=== PATIENT | male | born 1950 | race African-American/Black ===

== ENCOUNTER 2020-02-02 00:04 | Inpatient (IN) | payer OTHER ==
[2020-02-02] VITALS (8 sets, daily range): BP systolic 110–141; BP diastolic 65–94
[~2020-02-02] VITALS: Ht 162.6 cm; Wt 68.0 kg
--- NOTE | 2020-02-02 00:14 | Emergency Room Report ---
History of Present Illness General Chief Complaint: Substance Abuse Source: Patient Present Illness HPI 69-year-old -[place] male with no stated prior medical history brought in by ambulance with altered mental status. According to EMS, patient [place] unresponsive. He was given Narcan 4 mg intranasal prior to arrival with good response. He subsequently became lethargic and required another Narcan 2 mg IM. He is able to cooperate with exam and questioning at this time, however history is limited secondary to patient's altered mental status. Patient admits to smoking marijuana and snorting cocaine. Denies IV drug use or use of heroin/fentanyl The patient's symptoms were gradual onset, severity was moderate, duration since unknown duration. Quality: No pain Past medical history: Denies Past surgical history: Denies Smoking: Denies Alcohol use: Denies Drug use: +++ Review of systems: CONST: No fevers or chills, No night sweats PULMONARY: No productive cough, No shortness of breath CARDIAC: No chest pain, No palpitations GI: No vomiting, No diarrhea , No melena_or_BRBPR : No dysuria, No hematuria, No discharge NEURO: No new_focal_weakness_or_numbness, No confusion, No vision changes 14 point Review of Systems is otherwise negative except per HPI Physical Exam: GENERAL: Awake_alert_ nontoxic, no acute distress Spo2 90% on RA -normal EYES: Extraocular muscles are intact. Conjunctivae clear. Lids without swelling ENT: External nose and ear normal_in_appearance. Oropharynx clear. Head_atr aumatic, Moist_oral_mucosa NECK: No JVD. No meningismus. No thyromegaly. Supple. Trachea midline RESP: Bradypneic. Symmetric rise. No stridor. Clear_to_auscultation_No_rales_No_wheezes Coarse breath sounds bilaterally CARDIAC: Tachycardic and regular rhytm. No_significant pedal edema. ABDOMEN: Soft. Nondistended. Nontender_No_rebound_or_guarding. MSK: Normal muscle tone, without rigidity. Extremities without asymmetric deformity or swelling. SKIN: Warm and dry. No visible cyanosis or pallor NEUROLOGIC: Alert, oriented x3. Motor_and_sensation_grossly_intact. No truncal ataxia. Gait_normal Psych: Normal mood and affect, normal judgment and insight - COORDINATION OF CARE Case was discussed with: Patient Any labs and imaging that were ordered were interpreted as part of the medical decision making: Medical Decision Making/Plan: Differential diagnosis includes psychosis, delusions, paranoid schizophrenia, drug abuse, drug intoxication, drug overdose, among others. The patient denies any suicide attempt, overdose, or ingestion. He endorses cocaine today. Denies opiates. Denies fentanyl or heroin. They exhibit no signs of any toxic syndrome or drug / alcohol withdrawal. Labs were ordered for evaluation, given unclear history. Troponin was found to be critically elevated at 0.1. BNP was normal limits Patient was continually hypoxic on room air, therefore required supplemental nasal cannula. Suspect coingestions. UDS shows positive cocaine EKG shows no obvious signs of TCA overdose. Sinus tachycardia. Normal axis. No extreme right heart strain CXR shows no enlarged mediastinum, fracture, hemo-/pneumothorax The patient denies any external blood loss and has no significant pallor or evidence of acute anemia as a cause of their symptoms. Hemoglobin is not severely low, and acute blood transfusion is not indicated. In addition, the patient has no loud murmur or evidence of significant obstructive heart disease, symptoms are not in the setting of exertion. The patient is neurologically intact, with normal cerebellar exam, without any evidence of central vertigo as a cause of their symptoms. They appear well hydrated without any evidence of severe dehydration or acute hypovolemia. However, given the patients risk factors, the patient would benefit from admission to observation for continuous cardiac monitoring, given the possibility of cardiac syncope. Patient will be admitted for NSTEMI I spoke with Dr. Moreno (Pito Baca), and reviewed the patients presentation, w orkup, results, and treatment. They will admit the patient for further care and evaluation, and assume care of the patient at this time. 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 Time is exclusive of separately billab le procedures. Time includes: direct patient care, continuous monitoring and multiple patient reassessment, coordination of patient care, review of patient's medical records, medical consultation, family consultation regarding treatment decisions and docu mentation of patient care. Medical Decision Making Diagnostic Impression: Primary Impression: NSTEMI (non-ST elevated myocardial infarction) Additional Impressions: Polysubstance abuse Cocaine abuse Apnea Hypoxia JOSUE (acute kidney injury) Substance abuse Hypokalemia EKG Diagnostic Results Troponin ordered: Yes When was troponin ordered?: Feb 02, 2020 EKG Time: 00:37 EP Interpretation: Sinus tachycardia, nonspecific ST changes, no STEMI Rate: tachycardiac ASA given to the pt in ED: Yes Rhythm Strip Diag. Results Rhythm Strip Time: 01:21 EP Interpretation: yes Rate: 99 Rhythm: NSR, no ectopy Chest X-Ray Diagnostic Results Chest X-Ray Diagnostic Results : EVANGELINA Scribe Text Chest X-Ray: Views: 1 view(s) Indication: Syncope Findings: Normal heart size. Mediastinum normal. No infiltrate. Impression: No enlarged mediastinum. No pneumothorax. The X-ray(s) were independently viewed and interpreted contemporaneously Electronically signed by Terri montaño DO CT/MRI/US Diagnostic Results CT/MRI/US Diagnostic Results : Impression EXAM: CT Head Without Intravenous Contrast COMPARISON: No relevant prior studies available. FINDINGS: Brain: Parenchymal volume loss. Nonspecific white matter hypoattenuation likely secondary to chronic microvascular ischemia. Cerebrovascular ASVD. No hemorrhage. Ventricles: Unremarkable. No ventriculomegaly. Bones/joints: Unremarkable. No acute fracture. Soft tissues: Unremarkable. Sinuses: Unremarkable as visualized. No acute sinusitis. Mastoid air cells: Unremarkable as visualized. No mastoid effusion. IMPRESSION: 1. No acute intracranial abnormality. 2. Mild chronic senescent findings above. Radiologist: Rancho Chang MD Reevaluation Time: 01:21 Last Vital Signs Date Time Temp Pulse Resp B/P (MAP) Pulse Ox O2 Delivery O2 Flow Rate FiO2 02/02/20 00:01 98.8 109 18 136/87 (103) 98 Room Air Status: improved Disposition: ADMITTED INPATIENT Admit Decision Time: 01:26 Condition: Stable Terri Dooley D.O. Feb 02, 2020 00:14
[2020-02-02] MEDS ORDERED: Naloxone 1mg/ml 2ml IVP ONE (00:15)
[2020-02-02 00:40] LABS: BASOPHILS % (AUTO) 0.9 % (0.0-2.0); EOSINOPHILS % (AUTO) 1.9 % (0.0-3.0); HEMATOCRIT 43.5 % (42.0-52.0); HEMOGLOBIN 13.6 G/DL (14.2-18.0); MEAN CORPUSCULAR VOLUME 102 FL (80-99); MONOCYTES % (AUTO) 6.8 % (1.0-10.0); NEUTROPHILS % (AUTO) 60.4 % (45.0-75.0); PLATELET COUNT 267 K/UL (150-450); RED BLOOD COUNT 4.27 M/UL (4.70-6.10); RED CELL DISTRIBUTION WIDTH 13.6 % (11.6-14.8); WHITE BLOOD COUNT 10.7 K/UL (4.8-10.8)
[2020-02-02 00:57] LABS: ANION GAP 10 mmol/L (5-15); BLOOD UREA NITROGEN 22 mg/dL (7-18); CALCIUM 8.2 MG/DL (8.5-10.1); CARBON DIOXIDE 26 MMOL/L (21-32); CHLORIDE 104 MMOL/L (98-107); CREATININE 1.4 MG/DL (0.55-1.30); POTASSIUM 3.3 MMOL/L (3.5-5.1); SODIUM 139 MMOL/L (136-145)
[2020-02-02 01:10] LABS: ALANINE AMINOTRANSFERASE 40 U/L (12-78); ALBUMIN 3.4 G/DL (3.4-5.0); ALBUMIN/GLOBULIN RATIO 0.7 (1.0-2.7); ALKALINE PHOSPHATASE 77 U/L (46-116); ASPARTATE AMINO TRANSFERASE 51 U/L (15-37); BILIRUBIN,TOTAL 0.2 MG/DL (0.2-1.0)
[2020-02-02 01:22] LABS: APPEARANCE,URINE CLEAR; BILIRUBIN, URINE NEGATIVE (NEGATIVE); COLOR,URINE PALE YELLOW; GLUCOSE, URINE (UA) NEGATIVE (NEGATIVE); KETONES,URINE NEGATIVE (NEGATIVE); LEUKOCYTE ESTERASE ,URINE NEGATIVE (NEGATIVE); NITRITE,URINE NEGATIVE (NEGATIVE); PH,URINE 6 (4.5-8.0); PROTEIN,URINE 2+ (NEGATIVE); UROBILINOGEN,URINE NORMAL MG/DL (0.0-1.0)
--- NOTE | 2020-02-02 01:56 | Diagnostic Imaging Report ---
EXAM: CT Head Without Intravenous Contrast CLINICAL HISTORY: AMS TECHNIQUE: Axial computed tomography images of the head/brain without intravenous contrast. CTDI is 53.40 mGy and DLP is 1179.10 mGy-cm. One or more of the following dose reduction techniques were used: automated exposure control, adjustment of the mA and/or kV according to patient size, use of iterative reconstruction technique. COMPARISON: No relevant prior studies available. FINDINGS: Brain: Parenchymal volume loss. Nonspecific white matter hypoattenuation likely secondary to chronic microvascular ischemia. Cerebrovascular ASVD. No hemorrhage. Ventricles: Unremarkable. No ventriculomegaly. Bones/joints: Unremarkable. No acute fracture. Soft tissues: Unremarkable. Sinuses: Unremarkable as visualized. No acute sinusitis. Mastoid air cells: Unremarkable as visualized. No mastoid effusion. IMPRESSION: 1. No acute intracranial abnormality. 2. Mild chronic senescent findings above.
[2020-02-02] MEDS ORDERED: Heparin 5000 units/ml inj IV ONE (04:30)
[2020-02-02] MEDS ORDERED: Heparin 5000 units/ml inj IV SCH (04:30)
[2020-02-02] MEDS ORDERED: Heparin 25,000u/D5W 500ml 500 ML IV SCH (04:30)
[2020-02-02] MEDS ORDERED: Heparin 5000 units/ml inj SUBQ SCH (09:00)
[2020-02-02] MEDS: Aspirin Baby 81mg NG SCH (09:15)
[2020-02-02] MEDS: Heparin 5000 units/ml inj SUBQ SCH ×2 (09:18→20:18)
--- NOTE | 2020-02-02 10:37 | History and Physical ---
History of Present Illness General Reason for Hospitalization: Substance Abuse Present Illness HPI Mr. Mcmahon is a 69M with PMH of cocaine use [place] Patient was given narcan 4mg by EMS with good response. He required another round of Narcan of 2mg. Patient admits to daily use of cocaine for years. Denies any hx of cardiopulomonary disease. No other drug use. Takes no home medications. He is currently resting in bed and feels weak with some chills. Denies any sob, chest pain, abdominal pain, n/v. Initiala troponin .[address] possible slight [address] elevation in anterior leads. PMH: cocaine abuse Fx: denies any family hisotry disease Soc: uses cocaine daily for years, smokes 5-6 cigg daily for years, denies alcohol use Allergies: Coded Allergies: No Known Allergies (Unverified , 02/02/20) COVID-19 Screening Contact w/high risk pt: No Experienced COVID-19 symptoms?: No Patient History Healthcare decision maker Resuscitation status Advanced Directive on File Review of Systems Constitutional: Reports: malaise, weakness; Denies: no symptoms, see HPI, chills, sweats, fever, other Eye: Denies: no symptoms, see HPI, eye pain, blurred vision, tearing, double vision, nose pain, nose congestion, acuity changes, discharge, other ENT: Denies: no symptoms, see HPI, ear pain, ear discharge, nose pain, nose congestion, throat pain, throat swelling, mouth pain, hearing loss, nasal discharge, other Respiratory: Denies: no symptoms, see HPI, cough, orthopnea, shortness of breath, stridor, wheezing, VALVERDE, sputum, other Cardiovascular: Denies: no symptoms, see HPI, chest pain, edema, palpitations, syncope, PND, other Gastrointestinal: Denies: no symptoms, see HPI, abdominal pain, constipation, diarrhea, nausea, vomiting, melena, hematemesis, other Genitourinary: Denies: no symptoms, see HPI, discharge, dysuria, frequency, hematuria, pain, retention, incontinence, urgency, vag bleed/dc, other Musculoskeletal: Denies: no symptoms, see HPI, back pain, gout, joint pain, joint swelling, muscle pain, muscle stiffness, other Skin: Denies: no symptoms, see HPI, rash, change in color, change in hair/nails, dryness, lesions, other Psychiatric: Denies: no symptoms, see HPI, prior hx, anxiety, depressed feelings, emotional problems, SI, HI, hallucinations, other Neurological: Denies: no symptoms, see HPI, headache, numbness, paresthesia, s eizure, tingling, tremors, focal weakness, syncope, dizziness, other Endocrine: Denies: no symptoms, see HPI, excessive sweating, flushing, intolerance to temperature, increased thirst, increased urine, unexplained weight loss, other Hematologic/Lymphatic: Denies: no symptoms, see HPI, anemia, blood clots, easy bleeding, easy bruising, swollen glands, diathesis, other Physical Exam General Appearance: alert, mild distress, alert oriented x3 HEENT: atraumatic, PERRL Neck: supple, normal inspection Respiratory/Chest: lungs clear, normal breath sounds, respiratory distress Cardiovascular/Chest: normal rate, regular rhythm, no JVD Abdomen: normal bowel sounds, non tender, soft Extremities: normal range of motion, non-tender Skin Exam: normal pigmentation, warm/dry 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, alert, oriented x 3 Musculoskeletal: normal muscle bulk Last 24 Hour Vital Signs Date Time Temp Pulse Resp B/P (MAP) Pulse Ox O2 Delivery O2 Flow Rate FiO2 02/02/20 08:00 97.2 89 17 139/89 (106) 92 02/02/20 08:00 91 02/02/20 05:21 87 02/02/20 05:19 97.1 98 18 141/94 (110) 96 02/02/20 04:45 98.8 100 18 128/76 100 Simple Mask 6.0 02/02/20 04:00 98.7 100 18 134/82 100 Simple Mask 6.0 02/02/20 02:30 98.8 106 18 141/83 98 Simple Mask 6.0 02/02/20 00:10 98.8 109 18 130/81 98 Simple Mask 6.0 02/02/20 00:10 109 18 Room Air 02/02/20 00:01 98.8 109 18 136/87 (103) 98 Room Air Intake and Output 02/01/20 02/02/20 19:00 07:00 Intake Total 1720 ml Output Total 300 ml Balance 1420 ml Intake Oral 20 ml IV Total 1700 ml Output Urine Total 300 ml # Voids 3 Laboratory Tests Test 02/02/20 00:21 02/02/20 00:23 02/02/20 00:55 02/02/20 01:01 White Blood Count 10.7 K/UL (4.8-10.8) Red Blood Count 4.27 M/UL (4.70-6.10) L Hemoglobin 13.6 G/DL (14.2-18.0) L Hematocrit 43.5 % (42.0-52.0) Mean Corpuscular Volume 102 FL (80-99) H Mean Corpuscular Hemoglobin 31.9 PG (27.0-31.0) H Mean Corpuscular Hemoglobin Concent 31.2 G/DL (32.0-36.0) L Red Cell Distribution Width 13.6 % (11.6-14.8) Platelet Count 267 K/UL (150-450) Mean Platelet Volume 7.1 FL (6.5-10.1) Neutrophils (%) (Auto) 60.4 % (45.0-75.0) Lymphocytes (%) (Auto) 30.0 % (20.0-45.0) Monocytes (%) (Auto) 6.8 % (1.0-10.0) Eosinophils (%) (Auto) 1.9 % (0.0-3.0) Basophils (%) (Auto) 0.9 % (0.0-2.0) Sodium Level 139 MMOL/L (136-145) Potassium Level 3.3 MMOL/L (3.5-5.1) L Chloride Level 104 MMOL/L (98-107) Carbon Dioxide Level 26 MMOL/L (21-32) Anion Gap 10 mmol/L (5-15) Blood Urea Nitrogen 22 mg/dL (7-18) H Creatinine 1.4 MG/DL (0.55-1.30) H Estimat Glomerular Filtration Rate 50.4 mL/min (>60) Glucose Level 165 MG/DL (74-106) H Calcium Level 8.2 MG/DL (8.5-10.1) L Total Bilirubin 0.2 MG/DL (0.2-1.0) Aspartate Amino Transf (AST/SGOT) 51 U/L (15-37) H Alanine Aminotransferase (ALT/SGPT) 40 U/L (12-78) Alkaline Phosphatase 77 U/L (46-116) Troponin I 0.100 ng/mL (0.000-0.056) Pro-B-Type Natriuretic Peptide 79 pg/mL (0-125) Total Protein 8.0 G/DL (6.4-8.2) Albumin 3.4 G/DL (3.4-5.0) Globulin 4.6 g/dL Albumin/Globulin Ratio 0.7 (1.0-2.7) L Thyroid Stimulating Hormone (TSH) 4.163 uiU/mL (0.358-3.740) Salicylates Level 1.5 ug/mL (2.8-20) L Acetaminophen Level < 2 MCG/ML (10-30) L Serum Alcohol 15 mg/dL POC Whole Blood Glucose 141 MG/DL (74-106) H Ammonia < 10 umol/L (11-32) L Urine Color Pale yellow Urine Appearance Clear Urine pH 6 (4.5-8.0) Urine Specific [place] 1.020 (1.005-1.035) Urine Protein 2+ (NEGATIVE) H Urine Glucose (UA) Negative (NEGATIVE) Urine Ketones Negative (NEGATIVE) Urine Blood 2+ (NEGATIVE) H Urine Nitrite Negative (NEGATIVE) Urine Bilirubin Negative (NEGATIVE) Urine Urobilinogen Normal MG/DL (0.0-1.0) Urine Leukocyte Esterase Negative (NEGATIVE) Urine RBC 2-4 /HPF (0 - 0) H Urine WBC 0 /HPF (0 - 0) Urine Squamous Epithelial Cells None /LPF (NONE/OCC) Urine Bacteria Few /HPF (NONE) Urine Opiates Screen Negative (NEGATIVE) Urine Barbiturates Screen Negative (NEGATIVE) Phencyclidine (PCP) Screen Negative (NEGATIVE) Urine Amphetamines Screen Negative (NEGATIVE) Urine Benzodiazepines Screen Negative (NEGATIVE) Urine Cocaine Screen Positive (NEGATIVE) H Urine Marijuana (THC) Screen Negative (NEGATIVE) Test 02/02/20 05:30 02/02/20 05:50 Urine Random Sodium 156 mmol/L (20-110) H Urine Creatinine 108.3 MG/DL (30.0-125.0) Troponin I 0.107 ng/mL (0.000-0.056) Free Thyroxine 1.05 NG/DL (0.76-1.46) Free Triiodothyronine 2.3 pg/mL (2.3-4.2) Microbiology Date/Time Source Procedure Growth Status 02/02/20 04:00 Rectum Received 02/02/20 00:21 Nasopharynx SARS-CoV-2 RdRp Gene Assay - Final Complete Height (Feet): 5 Height (Inches): 4.00 Weight (Pounds): 150 Medications Current Medications Medications (Trade) Dose Ordered Sig/Mikel Route PRN Reason Start Time Stop Time Status Last Admin Dose Admin Aspirin (ASA) 81 mg DAILY NG 02/02/20 09:00 03/18/20 08:59 02/02/20 09:15 Dextrose (Dextrose 50%) 25 ml Q30M PRN IV Hypoglycemia 02/02/20 04:00 05/02/20 03:59 Dextrose (Dextrose 50%) 50 ml Q30M PRN IV Hypoglycemia 02/02/20 04:00 05/02/20 03:59 Heparin Sodium (Porcine) (Heparin 5000 units/ml) 5,000 units EVERY 12 HOURS SUBQ 02/02/20 09:00 03/18/20 08:59 02/02/20 09:18 Sodium Chloride 1,000 ml @ 75 mls/hr [id number] IV 02/02/20 07:30 03/03/20 07:29 02/02/20 09:16 Assessment/Plan Assessment/Plan: Mr. Mcmahon is a 69M with PMH of cocaine abuse admitted after being found down. A: # Acute Toxic Encephalopathy 2/2 cocaine abuse # NSTEMI Type 1 vs 2 # Cocaine Abuse # JOSUE likely 2/2 Drug abuse, pre-renal # Macrocytic Anemia P: - hemodynamically stable - sat well on RA, monitor for increased O2 support - troponins .1 > .109, ekg: nsr with possible anterior ST changes - f/u ECHO - no BB at this time given cocaine abuse - UTOX +cocaine - CT negative for acute pathology - monitor renal function - f/u a1c, lipid panel - Narcan prn - monitor for withdrawals - ativan prn for agitation - Cardiology consult Dr. Sepulveda, recs appreciated CODE: Full GI: none DVT: heparin 5000U BID Diet: cardiac Dispo: pending nstemi eval Time spent on this encounter was 71 minutes which included 45 minutes of counseling and care coordination. I discussed with the nurse at bedside. Time of note may not reflect time patient was seen. Sumit Cai D.O Feb 02, 2020 10:37
[2020-02-02] MEDS ORDERED: Naloxone 2 MG in D5W 500ml 498 ML IV PRN (10:45)
[2020-02-02] MEDS ORDERED: LORazepam Inj 2mg/ml 1ml IV PRN (10:45)
[2020-02-02] MEDS ORDERED: Milk of Magnesia 30ml Ud ORAL PRN (11:45)
[2020-02-02] MEDS ORDERED: Albuterol/Ipratropium 3ml neb HHN PRN (11:45)
--- NOTE | 2020-02-02 16:22 | Cardiac Electrophysiology PN ---
Subjective Subjective [id number] Objective Last 24 Hour Vital Signs Date Time Temp Pulse Resp B/P (MAP) Pulse Ox O2 Delivery O2 Flow Rate FiO2 02/02/20 16:00 100.4 108 18 114/71 (85) 97 02/02/20 12:00 102.2 125 18 118/70 (86) 92 02/02/20 09:00 Nasal Cannula 3.0 02/02/20 08:00 97.2 89 17 139/89 (106) 92 02/02/20 08:00 91 02/02/20 05:21 87 02/02/20 05:19 97.1 98 18 141/94 (110) 96 02/02/20 04:45 98.8 100 18 128/76 100 Simple Mask 6.0 02/02/20 04:00 98.7 100 18 134/82 100 Simple Mask 6.0 02/02/20 02:30 98.8 106 18 141/83 98 Simple Mask 6.0 02/02/20 00:10 98.8 109 18 130/81 98 Simple Mask 6.0 02/02/20 00:10 109 18 Room Air 02/02/20 00:01 98.8 109 18 136/87 (103) 98 Room Air Intake and Output 02/01/20 02/02/20 19:00 07:00 Intake Total 1720 ml Output Total 300 ml Balance 1420 ml Intake Oral 20 ml IV Total 1700 ml Output Urine Total 300 ml # Voids 3 Laboratory Tests Test 02/02/20 00:21 02/02/20 00:23 02/02/20 00:55 02/02/20 01:01 White Blood Count 10.7 K/UL (4.8-10.8) Red Blood Count 4.27 M/UL (4.70-6.10) L Hemoglobin 13.6 G/DL (14.2-18.0) L Hematocrit 43.5 % (42.0-52.0) Mean Corpuscular Volume 102 FL (80-99) H Mean Corpuscular Hemoglobin 31.9 PG (27.0-31.0) H Mean Corpuscular Hemoglobin Concent 31.2 G/DL (32.0-36.0) L Red Cell Distribution Width 13.6 % (11.6-14.8) Platelet Count 267 K/UL (150-450) Mean Platelet Volume 7.1 FL (6.5-10.1) Neutrophils (%) (Auto) 60.4 % (45.0-75.0) Lymphocytes (%) (Auto) 30.0 % (20.0-45.0) Monocytes (%) (Auto) 6.8 % (1.0-10.0) Eosinophils (%) (Auto) 1.9 % (0.0-3.0) Basophils (%) (Auto) 0.9 % (0.0-2.0) Sodium Level 139 MMOL/L (136-145) Potassium Level 3.3 MMOL/L (3.5-5.1) L Chloride Level 104 MMOL/L (98-107) Carbon Dioxide Level 26 MMOL/L (21-32) Anion Gap 10 mmol/L (5-15) Blood Urea Nitrogen 22 mg/dL (7-18) H Creatinine 1.4 MG/DL (0.55-1.30) H Estimat Glomerular Filtration Rate 50.4 mL/min (>60) Glucose Level 165 MG/DL (74-106) H Calcium Level 8.2 MG/DL (8.5-10.1) L Total Bilirubin 0.2 MG/DL (0.2-1.0) Aspartate Amino Transf (AST/SGOT) 51 U/L (15-37) H Alanine Aminotransferase (ALT/SGPT) 40 U/L (12-78) Alkaline Phosphatase 77 U/L (46-116) Troponin I 0.100 ng/mL (0.000-0.056) Pro-B-Type Natriuretic Peptide 79 pg/mL (0-125) Total Protein 8.0 G/DL (6.4-8.2) Albumin 3.4 G/DL (3.4-5.0) Globulin 4.6 g/dL Albumin/Globulin Ratio 0.7 (1.0-2.7) L Thyroid Stimulating Hormone (TSH) 4.163 uiU/mL (0.358-3.740) Salicylates Level 1.5 ug/mL (2.8-20) L Acetaminophen Level < 2 MCG/ML (10-30) L Serum Alcohol 15 mg/dL POC Whole Blood Glucose 141 MG/DL (74-106) H Ammonia < 10 umol/L (11-32) L Urine Color Pale yellow Urine Appearance Clear Urine pH 6 (4.5-8.0) Urine Specific [place] 1.020 (1.005-1.035) Urine Protein 2+ (NEGATIVE) H Urine Glucose (UA) Negative (NEGATIVE) Urine Ketones Negative (NEGATIVE) Urine Blood 2+ (NEGATIVE) H Urine Nitrite Negative (NEGATIVE) Urine Bilirubin Negative (NEGATIVE) Urine Urobilinogen Normal MG/DL (0.0-1.0) Urine Leukocyte Esterase Negative (NEGATIVE) Urine RBC 2-4 /HPF (0 - 0) H Urine WBC 0 /HPF (0 - 0) Urine Squamous Epithelial Cells None /LPF (NONE/OCC) Urine Bacteria Few /HPF (NONE) Urine Opiates Screen Negative (NEGATIVE) Urine Barbiturates Screen Negative (NEGATIVE) Phencyclidine (PCP) Screen Negative (NEGATIVE) Urine Amphetamines Screen Negative (NEGATIVE) Urine Benzodiazepines Screen Negative (NEGATIVE) Urine Cocaine Screen Positive (NEGATIVE) H Urine Marijuana (THC) Screen Negative (NEGATIVE) Test 02/02/20 05:30 02/02/20 05:50 02/02/20 12:05 Urine Random Sodium 156 mmol/L (20-110) H Urine Creatinine 108.3 MG/DL (30.0-125.0) Troponin I 0.107 ng/mL (0.000-0.056) 0.120 ng/mL (0.000-0.056) Free Thyroxine 1.05 NG/DL (0.76-1.46) Free Triiodothyronine 2.3 pg/mL (2.3-4.2) Microbiology Date/Time Source Procedure Growth Status 02/02/20 04:00 Rectum Received 02/02/20 00:21 Nasopharynx SARS-CoV-2 RdRp Gene Assay - Final Complete Ned Sepulveda MD Feb 02, 2020 16:22
--- NOTE | 2020-02-02 17:29 | General Progress Note ---
Advance Care Planning Advance Care Planning Advance Care Planning [facility] An independent Hospitalist group, where every patient is our [facility] Internal Medicine Hospitalist Advanced Care Planning Note Please contact us at Date of Discussion: A cadd-rd-targ discussion with the patient regarding the patient's advanced care planning took place during this hospitalization on the above date. The discussion included the explanation and discussion of advance directives and associated forms/documents, as well as the patient's current code status. We also discussed at length the patient's medical conditions (both acute and chroni c), general prognosis, treatment options, and goals of care. The following summarizes the discussion: Advance Care Planning/Goals of Care: - Will attempt to fill out an AD and/or POLST with the patient prior to discharge, if not already completed - Continue current evaluation and management of any acute and chronic medical issues - Will continue to support the patient/family - Will continue to discuss both short- and long-term goals of care DPOA-HC/Surrogate Decision Maker: None currently appointed Code Status: Full Code Advanced Care Planning Forms/Documents Completed: Deferred until later encounter/visit A total of 25 minutes was spent on this discussion, including counseling, answering questions, and completing, if any, pertinent advanced care planning forms/documents. Time of note may not reflect time of encounter. Sumit Cai D.O Feb 02, 2020 17:29
[2020-02-02 18:41] LABS: BILIRUBIN, URINE NEGATIVE (NEGATIVE); GLUCOSE, URINE (UA) NEGATIVE (NEGATIVE); KETONES,URINE 3+ (NEGATIVE); LEUKOCYTE ESTERASE ,URINE 1+ (NEGATIVE); NITRITE,URINE NEGATIVE (NEGATIVE); PH,URINE 5 (4.5-8.0); PROTEIN,URINE 1+ (NEGATIVE); UROBILINOGEN,URINE NORMAL MG/DL (0.0-1.0)
[2020-02-02 19:11] LABS: APPEARANCE,URINE SLIGHTLY CLOUDY; COLOR,URINE YELLOW
--- NOTE | 2020-02-02 21:15 | Consultation ---
DATE OF CONSULTATION: 02/02/2020 CARDIOLOGY CONSULTATION CONSULTING PHYSICIAN: Ned Sepulveda M.D. REFERRING PHYSICIAN: Elda Moreno M.D. REASON FOR CONSULTATION: Non-ST elevation myocardial infarction. HISTORY OF PRESENT ILLNESS: The patient is a 69-year-old gentleman, who is homeless with history of cocaine use, [place] The patient was given Narcan by paramedics and with a good response. The patient may need another round of mg of Narcan. The patient admits to daily use of cocaine for years. The patient did not have any chest pain or shortness of breath. Initial troponin was elevated and EKG showed possible ST elevation in the anterior leads. Cardiology consultation was obtained for further evaluation and management. REVIEW OF SYSTEMS: Negative other than what is mentioned in the history of present illness. PAST MEDICAL HISTORY: As mentioned above. MEDICATIONS AT HOME: None. ALLERGIES: He has no known drug allergies. FAMILY HISTORY: Noncontributory. SOCIAL HISTORY: He uses cocaine daily for years and smokes cigarettes, but denies any alcohol. PHYSICAL EXAMINATION: VITAL SIGNS: Blood pressure is 114/71, pulse is 108, respirations 18, and temperature of 102.2. HEAD AND NECK: Showed no JVED. LUNGS: Clear. CARDIOVASCULAR: Shows regular S1 and S2 with no gallop. ABDOMEN: Soft. EXTREMITIES: No pitting edema. LABORATORY DATA: Labs show white count of 10.7 hematocrit 13.6, hematocrit 43.5, and platelet count of 267,000. Sodium 139, potassium 3.3, BUN of 22, creatinine 1.4, and glucose of 165. Troponin is 0.1 and 0.1. ASSESSMENT AND PLAN: 1. Troponin elevation. The levels are flat and all the same likely due to the patient's cocaine use as well as renal failure with creatinine of 1.4. I will avoid beta-marine. We will treat him with aspirin and statin. We will get an echocardiogram to evaluate for ejection fraction and wall motion abnormality. 2. Altered mental status due to cocaine use. 3. Toxic encephalopathy again due to cocaine use. 4. Renal failure with creatinine 1.4. 5. Microcytic anemia. It is of note that the patient's preliminary echocardiogram showed ejection fraction of 55%. Thank you very much for allowing me to participate in the care of this patient. Please do not hesitate to contact me for any questions regarding my evaluation. Ned Sepulveda M.D. DR: MEETA JOB#: [id number] CC:
[2020-02-03] VITALS: BP 118/78
[2020-02-03] MEDS ORDERED: traMADol 50mg tab ORAL PRN (01:00)
[2020-02-03 04:00] VITALS: BP 112/67
[2020-02-03 07:17] LABS: BASOPHILS % (AUTO) 0.4 % (0.0-2.0); EOSINOPHILS % (AUTO) 1.4 % (0.0-3.0); HEMATOCRIT 39.3 % (42.0-52.0); HEMOGLOBIN 12.8 G/DL (14.2-18.0); LYMPHOCYTES % (AUTO) 15.4 % (20.0-45.0); MEAN CORPUSCULAR VOLUME 100 FL (80-99); NEUTROPHILS % (AUTO) 74.8 % (45.0-75.0); PLATELET COUNT 226 K/UL (150-450); RED BLOOD COUNT 3.93 M/UL (4.70-6.10); RED CELL DISTRIBUTION WIDTH 13.2 % (11.6-14.8); WHITE BLOOD COUNT 16.5 K/UL (4.8-10.8)
[2020-02-03 07:38] LABS: BLOOD UREA NITROGEN 16 mg/dL (7-18); CALCIUM 8.2 MG/DL (8.5-10.1); CARBON DIOXIDE 27 MMOL/L (21-32); CHLORIDE 103 MMOL/L (98-107); CHOLESTEROL 140 MG/DL (< 200); HDL CHOLESTEROL 50 MG/DL (40-60); POTASSIUM 4.1 MMOL/L (3.5-5.1); SODIUM 135 MMOL/L (136-145); TRIGLYCERIDES 37 MG/DL (30-150)
[2020-02-03 07:40] LABS: ANION GAP 5 mmol/L (5-15)
[2020-02-03 08:00] VITALS: BP 127/80
[2020-02-03] MEDS: Aspirin Baby 81mg NG SCH (08:25)
[2020-02-03] MEDS: cefTRIAXone 1 GM in D5W 55 ML IVPB SCH (08:25)
[2020-02-03] MEDS: Heparin 5000 units/ml inj SUBQ SCH ×2 (08:27→20:23)
--- NOTE | 2020-02-03 09:07 | General Progress Note ---
Subjective Constitutional: Reports: fever; Denies: no symptoms, chills, diaphoresis, malaise, weakness, other HEENT: Denies: no symptoms, eye pain, blurred vision, tearing, double vision, ear pain, ear discharge, nose pain, nose congestion, throat pain, throat swelling, mouth pain, mouth swelling, other Cardiovascular: Denies: no symptoms, chest pain, edema, irregular heart rate, lightheadedness, palpitations, syncope, other Respiratory: Denies: no symptoms, cough, orthopnea, shortness of breath, SOB with excertion, SOB at rest, sputum, stridor, wheezing, other Gastrointestinal/Abdominal: Denies: no symptoms, abdomen distended, abdominal pain, black stools, tarry stools, blood in stool, constipated, diarrhea, difficulty swallowing, nausea, poor appetite, poor fluid intake, rectal bleeding, vomiting, other Genitourinary: Denies: no symptoms, burning, discharge, frequency, flank pain, hematuria, incontinence, pain, urgency, other Neurologic/Psychiatric: Denies: no symptoms, anxiety, depressed, emotional problems, headache, numbness, paresthesia, pre-existing deficit, seizure, ti ngling, tremors, weakness, other Endocrine: Denies: no symptoms, excessive sweating, flushing, intolerance to cold, intolerance to heat, increased hunger, increased thirst, increased urine, unexplained weight gain, unexplained weight loss, other Hematologic/Lymphatic: Denies: no symptoms, anemia, easy bleeding, easy bruising, other Allergies: Coded Allergies: No Known Allergies (Unverified , 02/02/20) Subjective No acute events overnight. Patient feels much better this morning. However noted to have 100.4 fever yesterday afternoon and elevated white count this morning. Denies any dysuria, fever, chills at the moment. Still has a cough, still waiting on chest x-ray that was over ordered 48 hours ago. Objective Last 24 Hour Vital Signs Date Time Temp Pulse Resp B/P (MAP) Pulse Ox O2 Delivery O2 Flow Rate FiO2 02/03/20 08:00 96.8 101 19 127/80 (96) 98 02/03/20 04:00 94 02/03/20 04:00 99.5 93 20 112/67 (82) 95 02/03/20 02:09 99.5 02/03/20 00:00 93 11/20/20 00:00 99.5 93 20 118/78 (91) 97 02/02/20 21:00 Nasal Cannula 3.0 02/02/20 20:00 98.1 93 110/65 (80) 95 02/02/20 20:00 96 02/02/20 16:00 97 02/02/20 16:00 100.4 108 18 114/71 (85) 97 02/02/20 13:31 99.4 02/02/20 12:00 102.2 125 18 118/70 (86) 92 02/02/20 12:00 126 Intake and Output 02/02/20 02/03/20 19:00 07:00 Intake Total 120 ml Output Total 350 ml Balance -230 ml Intake Oral 120 ml Output Urine Total 350 ml # Voids 2 Laboratory Tests 02/02/20 12:05: Troponin I 0.120H 02/02/20 17:30: Urine Color Yellow, Urine Appearance Slightly cloudy, Urine pH 5, Urine Specific [place] 1.015, Urine Protein 1+H, Urine Glucose (UA) Negative, Urine Ketones 3+H , Urine Blood 3+H, Urine Nitrite Negative, Urine Bilirubin Negative, Urine Urobilinogen Normal, Urine Leukocyte Esterase 1+H, Urine RBC 5-10H, Urine WBC 15-20H, Urine Squamous Epithelial Cells None, Urine Transitional Epithelial Cells , Urine Bacteria Few 02/02/20 18:00: Troponin I 0.118H 02/03/20 00:30: Troponin I 0.099H 02/03/20 06:05: White Blood Count 16.5#H, Red Blood Count 3.93L, Hemoglobin 12.8L, Hematocrit 39.3L, Mean Corpuscular Volume 100H, Mean Corpuscular Hemoglobin 32.4H, Mean Corpuscular Hemoglobin Concent 32.4, Red Cell Distribution Width 13.2, Platelet Count 226, Mean Platelet Volume 6.8, Neutrophils (%) (Auto) 74.8, Lymphocytes (%) (Auto) 15.4L, Monocytes (%) (Auto) 8.0, Eosinophils (%) (Auto) 1.4, Basophils (%) (Auto) 0.4, Sodium Level 135L, Potassium Level 4.1, Chloride Level 103, Carbon Dioxide Level 27, Anion Gap 5, Blood Urea Nitrogen 16, Creatinine 1.0, Estimat Glomerular Filtration Rate > 60, Glucose Level 77, Hemoglobin A1c 6.5H, Calcium Level 8.2L, Magnesium Level 1.9, Troponin I 0.082H, Pro-B-Type Natriuretic Peptide 427H, Triglycerides Level 37, Cholesterol Level 140, LDL Cho lesterol 72, HDL Cholesterol 50, Cholesterol/HDL Ratio 2.8L, Vitamin B12 Level 404, Folate 6.3L Height (Feet): 5 Height (Inches): 4.00 Weight (Pounds): 150 General Appearance: no apparent distress, alert, alert oriented x3 EENT: PERRL/EOMI Neck: non-tender, normal inspection Cardiovascular: normal rate, regular rhythm, no JVD Respiratory/Chest: lungs clear, normal breath sounds Abdomen: normal bowel sounds, non tender, soft Extremities: normal range of motion, non-tender Edema: no edema noted Arm (L), no edema noted Arm (R), no edema noted Leg (L), no edema noted Leg (R), no edema noted Pedal (L), no edema noted Pedal (R), no edema noted Generalized Neurologic: relocation counselor II-XII grossly normal, alert, oriented x 3 Skin: normal pigmentation, warm/dry Assessment/Plan Assessment/Plan: Mr. Mcmahon is a 69M with PMH of cocaine abuse admitted after being found down. A: # Acute Toxic Encephalopathy 2/2 cocaine abuseresolved # NSTEMI type 2 2/2 from cocaine abuse #Sepsis (Leukocytosis + fever) plus UTI source #UTI # Cocaine Abuse # JOSUE likely 2/2 Drug abuse, pre-renal # Macrocytic Anemia #Newly diagnosed type 2 diabetes mellitus P: - hemodynamically stable - sat well on RA, monitor for increased O2 support -Troponins downtrending, likely demand ischemia per cardiology -Echo showing preserved EF of 55% no regional wall motion abnormalities no valvular function abnormalities RSVP of 10 - no BB at this time given cocaine abuse - UTOX +cocaine -STILL waiting on chest x-ray, patient with persistent cough UA positive for UTI, will start empirically with Rocephin Monitor leukocytosis Follow-up blood cultures, urine cultures, MRSA screen - monitor renal function - A1c: 6.5, will give Metformin on discharge - Narcan prn - monitor for withdrawals - ativan prn for agitation - Cardiology consult Dr. Sepulveda, recs appreciated CODE: Full GI: none DVT: heparin 5000U BID Diet: cardiac Dispo: Pending infectious work-up, possible discharge in 1 to 2 days Time spent on this encounter was 45 minutes which included 24 minutes of counseling and care coordination. I discussed with the nurse at bedside. Time of note may not reflect time patient was seen. Sumit Cai D.O Feb 03, 2020 09:07
--- NOTE | 2020-02-03 11:43 | Cardiac Electrophysiology PN ---
Assessment/Plan Assessment/Plan 1. Troponin elevation. The levels are flat and low level due cocaine use as well as renal failure I will avoid beta-marine. We will treat him with aspirin and statin. Echocardiogram EF 55% 2. Altered mental status due to cocaine use. 3. Toxic encephalopathy again due to cocaine use. 4. Renal failure with creatinine 1.4. 5. Microcytic anemia. Subjective Subjective Alert in SR no CP. Objective Last 24 Hour Vital Signs Date Time Temp Pulse Resp B/P (MAP) Pulse Ox O2 Delivery O2 Flow Rate FiO2 02/03/20 09:00 Nasal Cannula 3.0 02/03/20 08:00 102 02/03/20 08:00 96.8 101 19 127/80 (96) 98 02/03/20 04:00 94 02/03/20 04:00 99.5 93 20 112/67 (82) 95 02/03/20 02:09 99.5 02/03/20 00:00 93 02/03/20 00:00 99.5 93 20 118/78 (91) 97 02/02/20 21:00 Nasal Cannula 3.0 02/02/20 20:00 98.1 93 20 110/65 (80) 95 02/02/20 20:00 96 02/02/20 16:00 97 02/02/20 16:00 100.4 108 18 114/71 (85) 97 02/02/20 13:31 99.4 02/02/20 12:00 102.2 125 18 118/70 (86) 92 02/02/20 12:00 126 Intake and Output 02/02/20 02/03/20 19:00 07:00 Intake Total 120 ml Output Total 350 ml Balance -230 ml Intake Oral 120 ml Output Urine Total 350 ml # Voids 2 Laboratory Tests Test 02/02/20 12:05 02/02/20 17:30 02/02/20 18:00 02/03/20 00:30 Troponin I 0.120 ng/mL (0.000-0.056) 0.118 ng/mL (0.000-0.056) 0.099 ng/mL (0.000-0.056) Urine Color Yellow Urine Appearance Slightly cloudy Urine pH 5 (4.5-8.0) Urine Specific [place] 1.015 (1.005-1.035) Urine Protein 1+ (NEGATIVE) H Urine Glucose (UA) Negative (NEGATIVE) Urine Ketones 3+ (NEGATIVE) H Urine Blood 3+ (NEGATIVE) H Urine Nitrite Negative (NEGATIVE) Urine Bilirubin Negative (NEGATIVE) Urine Urobilinogen Normal MG/DL (0.0-1.0) Urine Leukocyte Esterase 1+ (NEGATIVE) H Urine RBC 5-10 /HPF (0 - 0) H Urine WBC 15-20 /HPF (0 - 0) H Urine Squamous Epithelial Cells None /LPF (NONE/OCC) Urine Transitional Epithelial Cells /LPF (NONE) Urine Bacteria Few /HPF (NONE) Test 02/03/20 06:05 White Blood Count 16.5 K/UL (4.8-10.8) #H Red Blood Count 3.93 M/UL (4.70-6.10) L Hemoglobin 12.8 G/DL (14.2-18.0) L Hematocrit 39.3 % (42.0-52.0) L Mean Corpuscular Volume 100 FL (80-99) H Mean Corpuscular Hemoglobin 32.4 PG (27.0-31.0) H Mean Corpuscular Hemoglobin Concent 32.4 G/DL (32.0-36.0) Red Cell Distribution Width 13.2 % (11.6-14.8) Platelet Count 226 K/UL (150-450) Mean Platelet Volume 6.8 FL (6.5-10.1) Neutrophils (%) (Auto) 74.8 % (45.0-75.0) Lymphocytes (%) (Auto) 15.4 % (20.0-45.0) L Monocytes (%) (Auto) 8.0 % (1.0-10.0) Eosinophils (%) (Auto) 1.4 % (0.0-3.0) Basophils (%) (Auto) 0.4 % (0.0-2.0) Sodium Level 135 MMOL/L (136-145) L Potassium Level 4.1 MMOL/L (3.5-5.1) Chloride Level 103 MMOL/L (98-107) Carbon Dioxide Level 27 MMOL/L (21-32) Anion Gap 5 mmol/L (5-15) Blood Urea Nitrogen 16 mg/dL (7-18) Creatinine 1.0 MG/DL (0.55-1.30) Estimat Glomerular Filtration Rate > 60 mL/min (>60) Glucose Level 77 MG/DL (74-106) Hemoglobin A1c 6.5 % (4.3-6.0) H Calcium Level 8.2 MG/DL (8.5-10.1) L Magnesium Level 1.9 MG/DL (1.8-2.4) Troponin I 0.082 ng/mL (0.000-0.056) Pro-B-Type Natriuretic Peptide 427 pg/mL (0-125) H Triglycerides Level 37 MG/DL (30-150) Cholesterol Level 140 MG/DL (< 200) LDL Cholesterol 72 mg/dL (<100) HDL Cholesterol 50 MG/DL (40-60) Cholesterol/HDL Ratio 2.8 (3.3-4.4) L Vitamin B12 Level 404 PG/ML (193-986) Folate 6.3 NG/ML (8.6-58.9) L Microbiology Date/Time Source Procedure Growth Status 02/02/20 17:30 Urine,Clean Catch Urine Culture - Preliminary NO GROWTH Resulted 02/02/20 04:00 Rectum Received 02/02/20 00:21 Nasopharynx SARS-CoV-2 RdRp Gene Assay - Final Complete Objective HEAD AND NECK: No JVD. LUNGS: Clear. CARDIOVASCULAR: Regular S1 and S2 with no gallop. ABDOMEN: Soft. EXTREMITIES: No pitting edema. Ned Sepulveda MD Feb 03, 2020 11:43
[2020-02-03 11:53] VITALS: BP 128/79
--- NOTE | 2020-02-03 15:09 | Diagnostic Imaging Report ---
Indication: Shortness of breath Technique: Portable frontal view of the chest Comparison: 02/02/2020, 1:19 Findings: There is worsening aeration with increasing patchy opacities at the right base. Mild streaky opacities at the left base are unchanged. This even pleural effusion. No pneumothorax. No acute osseous abnormality. IMPRESSION: Worsening aeration with increasing right basilar opacities. Findings may related to increased atelectasis and/or pneumonia.
[2020-02-03 16:00] VITALS: BP 132/81
--- NOTE | 2020-02-03 16:09 | Cardiology Report ---
APPROVED REPORT EKG Measurement Heart [id number] [id number] <Conclusion> Normal sinus rhythm Anterior infarct, age undetermined Abnormal ECG
--- NOTE | 2020-02-03 16:25 | Cardiology Report ---
APPROVED REPORT EKG Measurement Heart [id number] [id number] <Conclusion> Sinus tachycardia Anterior infarct, age undetermined Abnormal ECG
--- NOTE | 2020-02-03 16:27 | Cardiology Report ---
APPROVED REPORT EKG Measurement Heart [id number] [id number] <Conclusion> Sinus tachycardia Cannot rule out Anterior infarct, age undetermined Abnormal ECG
--- NOTE | 2020-02-03 16:29 | Cardiology Report ---
APPROVED REPORT EKG Measurement Heart [id number] 180P53 [id number] <Conclusion> Normal sinus rhythm with sinus arrhythmia Possible Anterior infarct, age undetermined Abnormal ECG
--- NOTE | 2020-02-03 16:33 | Cardiology Report ---
APPROVED REPORT EKG Measurement Heart [id number] 186P70 [id number] <Conclusion> Sinus tachycardia Nonspecific T wave abnormality Abnormal ECG
[2020-02-03] MEDS ORDERED: Azithromycin 500 MG in D5W 275 ML IV ONE (17:00)
[2020-02-03 20:00] VITALS: BP 130/80
--- NOTE | 2020-02-03 20:58 | Neurology Progress Note ---
Interim History Interim History Interim History 69M with PMH of cocaine use [place] Patient was given narcan 4mg by EMS with good response. He required another round of Narcan of 2mg. Patient admits to daily use of cocaine for years. Denies any hx of cardiopulomonary disease. No other drug use. Takes no home medications. He is currently resting in bed and feels weak with some chills. Denies any sob, chest pain, abdominal pain, n/v. Initiala troponin .[address] possible slight ST elevation in anterior leads. Remains somnolent, confused, oriented to person PMH: cocaine abuse Fx: denies any family hisotry disease Soc: uses cocaine daily for years, smokes 5-6 cigg daily for years, denies alcohol use Objective Physical Exam Last Vital Signs Date Time Temp Pulse Resp B/P (MAP) Pulse Ox O2 Delivery O2 Flow Rate FiO2 02/03/20 16:02 89 20 95 Nasal Cannula 3.0 32 02/03/20 16:00 96.6 132/81 (98) Laboratory Tests Test 02/03/20 00:30 02/03/20 06:05 02/03/20 12:00 02/03/20 18:10 Troponin I 0.099 ng/mL (0.000-0.056) 0.082 ng/mL (0.000-0.056) 0.079 ng/mL (0.000-0.056) 0.069 ng/mL (0.000-0.056) White Blood Count 16.5 K/UL (4.8-10.8) #H Red Blood Count 3.93 M/UL (4.70-6.10) L Hemoglobin 12.8 G/DL (14.2-18.0) L Hematocrit 39.3 % (42.0-52.0) L Mean Corpuscular Volume 100 FL (80-99) H Mean Corpuscular Hemoglobin 32.4 PG (27.0-31.0) H Mean Corpuscular Hemoglobin Concent 32.4 G/DL (32.0-36.0) Red Cell Distribution Width 13.2 % (11.6-14.8) Platelet Count 226 K/UL (150-450) Mean Platelet Volume 6.8 FL (6.5-10.1) Neutrophils (%) (Auto) 74.8 % (45.0-75.0) Lymphocytes (%) (Auto) 15.4 % (20.0-45.0) L Monocytes (%) (Auto) 8.0 % (1.0-10.0) Eosinophils (%) (Auto) 1.4 % (0.0-3.0) Basophils (%) (Auto) 0.4 % (0.0-2.0) Sodium Level 135 MMOL/L (136-145) L Potassium Level 4.1 MMOL/L (3.5-5.1) Chloride Level 103 MMOL/L (98-107) Carbon Dioxide Level 27 MMOL/L (21-32) Anion Gap 5 mmol/L (5-15) Blood Urea Nitrogen 16 mg/dL (7-18) Creatinine 1.0 MG/DL (0.55-1.30) Estimat Glomerular Filtration Rate > 60 mL/min (>60) Glucose Level 77 MG/DL (74-106) Hemoglobin A1c 6.5 % (4.3-6.0) H Calcium Level 8.2 MG/DL (8.5-10.1) L Magnesium Level 1.9 MG/DL (1.8-2.4) Pro-B-Type Natriuretic Peptide 427 pg/mL (0-125) H Triglycerides Level 37 MG/DL (30-150) Cholesterol Level 140 MG/DL (< 200) LDL Cholesterol 72 mg/dL (<100) HDL Cholesterol 50 MG/DL (40-60) Cholesterol/HDL Ratio 2.8 (3.3-4.4) L Vitamin B12 Level 404 PG/ML (193-986) Folate 6.3 NG/ML (8.6-58.9) L Head: normocophalic Neck: no rigidity EENT: benign Neurologic Exam Objective non focal withdraws to pain Impression/Recommendations Problems: (1) Hypokalemia (2) Substance abuse (3) Cocaine abuse (4) Apnea (5) Hypoxia (6) Polysubstance abuse (7) NSTEMI (non-ST elevated myocardial infarction) (8) JOSUE (acute kidney injury) Diagnostic Impression acute encephalopathy, likely metabolic ro vascular, ddx seizure? tele cont atb FU cultures mri brain eeg Jose Luis Paulino MD Feb 03, 2020:57
[2020-02-04] VITALS: BP 141/91
--- NOTE | 2020-02-04 03:01 | Diagnostic Imaging Report ---
EXAM: XR Chest, 1 View CLINICAL HISTORY: COUGH TECHNIQUE: Frontal view of the chest. COMPARISON: No relevant prior studies available. FINDINGS: Lungs: Bilateral increased interstitial opacities in the lungs. There is some increased bibasilar opacification. Pleural space: Unremarkable. No pneumothorax. Heart: No cardiomegaly. Mediastinum: Unremarkable. Bones/joints: Old left-sided rib fractures. IMPRESSION: Bilateral interstitial and airspace disease.
[2020-02-04 04:00] VITALS: BP 136/85
[2020-02-04 06:47] LABS: BASOPHILS % (AUTO) 0.7 % (0.0-2.0); EOSINOPHILS % (AUTO) 2.8 % (0.0-3.0); HEMATOCRIT 41.1 % (42.0-52.0); HEMOGLOBIN 13.1 G/DL (14.2-18.0); LYMPHOCYTES % (AUTO) 16.6 % (20.0-45.0); MEAN CORPUSCULAR VOLUME 100 FL (80-99); MONOCYTES % (AUTO) 7.9 % (1.0-10.0); NEUTROPHILS % (AUTO) 71.9 % (45.0-75.0); PLATELET COUNT 232 K/UL (150-450); RED BLOOD COUNT 4.12 M/UL (4.70-6.10); RED CELL DISTRIBUTION WIDTH 13.4 % (11.6-14.8); WHITE BLOOD COUNT 10.5 K/UL (4.8-10.8)
[2020-02-04 07:10] LABS: ANION GAP 5 mmol/L (5-15); BLOOD UREA NITROGEN 12 mg/dL (7-18); CALCIUM 7.9 MG/DL (8.5-10.1); CARBON DIOXIDE 28 MMOL/L (21-32); CHLORIDE 105 MMOL/L (98-107); CREATININE 0.7 MG/DL (0.55-1.30); POTASSIUM 3.9 MMOL/L (3.5-5.1); SODIUM 137 MMOL/L (136-145)
[2020-02-04 08:00] VITALS: BP 129/81
[2020-02-04] MEDS: Aspirin Baby 81mg NG SCH (08:17)
[2020-02-04] MEDS: cefTRIAXone 1 GM in D5W 55 ML IVPB SCH (08:17)
[2020-02-04] MEDS: Heparin 5000 units/ml inj SUBQ SCH ×2 (08:18→22:52)
--- NOTE | 2020-02-04 09:09 | General Progress Note ---
Subjective Constitutional: Reports: weakness; Denies: no symptoms, chills, diaphoresis, fever, malaise, other HEENT: Denies: no symptoms, eye pain, blurred vision, tearing, double vision, ear pain, ear discharge, nose pain, nose congestion, throat pain, throat swelling, mouth pain, mouth swelling, other Cardiovascular: Denies: no symptoms, chest pain, edema, irregular heart rate, lightheadedness, palpitations, syncope, other Respiratory: Reports: cough, sputum; Denies: no symptoms, orthopnea, shortness of breath, SOB with excertion, SOB at rest, stridor, wheezing, other Gastrointestinal/Abdominal: Denies: no symptoms, abdomen distended, abdominal pain, black stools, tarry stools, blood in stool, constipated, diarrhea, difficulty swallowing, nausea, poor appetite, poor fluid intake, rectal bleeding, vomiting, other Genitourinary: Denies: no symptoms, burning, discharge, frequency, flank pain, hematuria, incontinence, pain, urgency, other Neurologic/Psychiatric: Denies: no symptoms, anxiety, depressed, emotional problems, headache, numbness, paresthesia, pre-existing deficit, seizure, tingling, tremors, weakness, other Endocrine: Denies: no symptoms, excessive sweating, flushing, intolerance to cold, intolerance to heat, increased hunger, increased thirst, increased urine, unexplained weight gain, unexplained weight loss, other Hematologic/Lymphatic: Denies: no symptoms, anemia, easy bleeding, easy bruising, other Allergies: Coded Allergies: No Known Allergies (Unverified , 02/02/20) Subjective No acute events overnight. Patient with persistent cough and weakness. Denies any fevers or chills. No chest pain, shortness of breath. Objective Last 24 Hour Vital Signs Date Time Temp Pulse Resp B/P (MAP) Pulse Ox O2 Delivery O2 Flow Rate FiO2 02/04/20 08:00 97.9 92 20 129/81 (97) 100 02/04/20 04:00 83 02/04/20 04:00 97.6 92 17 136/85 (102) 95 02/04/20 00:00 102 02/04/20 00:00 97.9 90 16 141/91 (108) 95 02/03/20 21:00 Nasal Cannula 3.0 02/03/20 20:00 92 02/03/20 20:00 97.7 96 18 130/80 (97) 94 02/03/20 19:00 96 Nasal Cannula 3.0 32 02/03/20 16:02 89 20 95 Nasal Cannula 3.0 32 02/03/20 16:02 95 Nasal Cannula 3.0 32 02/03/20 16:00 91 02/03/20 16:00 96.6 87 20 132/81 (98) 97 02/03/20 12:00 99 02/03/20 11:53 98.7 86 20 128/79 (95) 96 Intake and Output 02/03/20 02/04/20 19:00 07:00 Intake Total 360 ml Output Total 350 ml Balance 10 ml Intake Oral 360 ml Output Urine Total 350 ml # Voids 2 4 Laboratory Tests 02/03/20 12:00: Troponin I 0.079H 02/03/20 18:10: Troponin I 0.069H 02/04/20 00:10: Troponin I 0.076H 02/04/20 05:45: Troponin I 0.068H, White Blood Count 10.5, Red Blood Count 4.12L, Hemoglobin 13.1L, Hematocrit 41.1L, Mean Corpuscular Volume 100H, Mean Corpuscular Hemoglobin 31.7H, Mean Corpuscular Hemoglobin Concent 31.9L, Red Cell Distribution Width 13.4, Platelet Count 232, Mean Platelet Volume 6.6, Neutrophils (%) (Auto) 71.9, Lymphocytes (%) (Auto) 16.6L, Monocytes (%) (Auto) 7.9, Eosinophils (%) (Auto) 2.8, Basophils (%) (Auto) 0.7, Sodium Level 137, Pot assium Level 3.9, Chloride Level 105, Carbon Dioxide Level 28, Anion Gap 5, Blood Urea Nitrogen 12, Creatinine 0.7, Estimat Glomerular Filtration Rate > 60, Glucose Level 85, Calcium Level 7.9L, Magnesium Level 1.9 Height (Feet): 5 Height (Inches): 4.00 Weight (Pounds): 150 General Appearance: no apparent distress, alert, alert oriented x3 EENT: PERRL/EOMI Neck: normal alignment, supple Cardiovascular: normal rate, regular rhythm, no JVD Respiratory/Chest: no accessory muscle use, crackles/rales Abdomen: normal bowel sounds, non tender, soft Extremities: normal range of motion, non-tender Edema: no edema noted Arm (L), no edema noted Arm (R), no edema noted Leg (L), no edema noted Leg (R), no edema noted Pedal (L), no edema noted Pedal (R), no edema noted Generalized Neurologic: green ware caster II-XII grossly normal, alert, oriented x 3 Skin: normal pigmentation, warm/dry Assessment/Plan Assessment/Plan: Mr. Mcmahon is a 69M with PMH of cocaine abuse admitted after being found down. A: # Acute Toxic Encephalopathy 2/2 cocaine abuseresolved # NSTEMI type 2 2/2 from cocaine abuse #Community-acquired pneumonia #Sepsis (Leukocytosis + fever) plus UTI source and pneumonia #UTI # Cocaine Abuse # JOSUE likely 2/2 Drug abuse, pre-renalresolved # Macrocytic Anemia #Newly diagnosed type 2 diabetes mellitus P: - hemodynamically stable - sat well on 3 L, monitor for increased O2 support -Echo showing preserved EF of 55% no regional wall motion abnormalities no valvular function abnormalities RSVP of 10 - no BB at this time given cocaine abuse Chest x-ray showing right infiltrates Continue Rocephin and azithromycin for pneumonia Monitor leukocytosis which improved today Blood cultures negative for 24 hours, MRSA screen negative - monitor renal function Follow-up MRI per neurology - A1c: 6.5, will give Metformin on discharge - Narcan prn - monitor for withdrawals - ativan prn for agitation - Cardiology consult Dr. Sepulveda, recs appreciated Neurology consulted Dr. Paulino, recs appreciated Physical therapy CODE: Full GI: none DVT: heparin 5000U BID Diet: cardiac Dispo: Improvement of pneumonia, MRI results Time spent on this encounter was 41 minutes which included 22 minutes of counseling and care coordination. I discussed with the nurse at bedside. Time of note may not reflect time patient was seen. Sumit Cai D.O Feb 04, 2020 09:09
[2020-02-04 12:00] VITALS: BP 109/78
[2020-02-04] MEDS ORDERED: Tubing IV Secondary IV ONE (15:46)
[2020-02-04] MEDS ORDERED: NS 275ml ONE (15:46)
[2020-02-04 16:00] VITALS: BP 126/80
[2020-02-04] MEDS: Azithromycin 500 MG in D5W 275 ML IV SCH (17:08)
[2020-02-04 20:00] VITALS: BP 126/84
--- NOTE | 2020-02-04 20:56 | Cardiac Electrophysiology PN ---
Assessment/Plan Assessment/Plan 1. Troponin elevation. The levels are flat and low level due cocaine use as well as renal failure Avoid beta-blockers. Continue aspirin and statin. Echocardiogram EF 55% 2. Altered mental status due to cocaine use. 3. Toxic encephalopathy again due to cocaine use. 4. Renal failure with creatinine 1.4. 5. Microcytic anemia. Subjective Subjective Alert in SR. Says off and on gets chest pain. Objective Last 24 Hour Vital Signs Date Time Temp Pulse Resp B/P (MAP) Pulse Ox O2 Delivery O2 Flow Rate FiO2 02/04/20 20:14 95 Nasal Cannula 3.0 32 02/04/20 16:00 97.5 87 20 126/80 (95) 100 02/04/20 16:00 90 02/04/20 12:00 97.9 87 20 109/78 (88) 100 02/04/20 12:00 94 02/04/20 09:00 Nasal Cannula 3.0 02/04/20 08:00 97.9 92 20 129/81 (97) 100 02/04/20 08:00 96 02/04/20 04:00 83 02/04/20 04:00 97.6 92 17 136/85 (102) 95 02/04/20 00:00 102 02/04/20 00:00 97.9 90 16 141/91 (108) 95 02/03/20 21:00 Nasal Cannula 3.0 Intake and Output 02/03/20 02/04/20 19:00 07:00 Intake Total 360 ml Output Total 350 ml Balance 10 ml Intake Oral 360 ml Output Urine Total 350 ml # Voids 2 4 Laboratory Tests Test 02/04/20 00:10 02/04/20 05:45 02/04/20 12:00 02/04/20 18:00 Troponin I 0.076 ng/mL (0.000-0.056) 0.068 ng/mL (0.000-0.056) 0.072 ng/mL (0.000-0.056) 0.070 ng/mL (0.000-0.056) White Blood Count 10.5 K/UL (4.8-10.8) Red Blood Count 4.12 M/UL (4.70-6.10) L Hemoglobin 13.1 G/DL (14.2-18.0) L Hematocrit 41.1 % (42.0-52.0) L Mean Corpuscular Volume 100 FL (80-99) H Mean Corpuscular Hemoglobin 31.7 PG (27.0-31.0) H Mean Corpuscular Hemoglobin Concent 31.9 G/DL (32.0-36.0) L Red Cell Distribution Width 13.4 % (11.6-14.8) Platelet Count 232 K/UL (150-450) Mean Platelet Volume 6.6 FL (6.5-10.1) Neutrophils (%) (Auto) 71.9 % (45.0-75.0) Lymphocytes (%) (Auto) 16.6 % (20.0-45.0) L Monocytes (%) (Auto) 7.9 % (1.0-10.0) Eosinophils (%) (Auto) 2.8 % (0.0-3.0) Basophils (%) (Auto) 0.7 % (0.0-2.0) Sodium Level 137 MMOL/L (136-145) Potassium Level 3.9 MMOL/L (3.5-5.1) Chloride Level 105 MMOL/L (98-107) Carbon Dioxide Level 28 MMOL/L (21-32) Anion Gap 5 mmol/L (5-15) Blood Urea Nitrogen 12 mg/dL (7-18) Creatinine 0.7 MG/DL (0.55-1.30) Estimat Glomerular Filtration Rate > 60 mL/min (>60) Glucose Level 85 MG/DL (74-106) Calcium Level 7.9 MG/DL (8.5-10.1) L Magnesium Level 1.9 MG/DL (1.8-2.4) Microbiology Date/Time Source Procedure Growth Status 02/02/20 17:30 Urine,Clean Catch Urine Culture - Final Mixed Urogenital Contaminants Complete 02/02/20 12:30 Blood Blood Culture - Preliminary NO GROWTH AFTER 24 HOURS Resulted 02/02/20 12:05 Blood Blood Culture - Preliminary NO GROWTH AFTER 24 HOURS Resulted 02/02/20 04:00 Rectum - Final NO CARBAPENEM-RESISTANT ENTEROBACTERI... Complete 02/02/20 04:00 Rectum VRE Culture - Final NO VANCOMYCIN RESISTANT ENTEROCOCCUS ... Complete 02/02/20 04:00 Nasal Nares Left MRSA Culture - Final NO METHICILLIN RESISTANT STAPH AUREUS... Complete 02/02/20 00:21 Nasopharynx SARS-CoV-2 RdRp Gene Assay - Final Complete Objective HEAD AND NECK: No JVD. LUNGS: Clear. CARDIOVASCULAR: Regular S1 and S2 with no gallop. ABDOMEN: Soft. EXTREMITIES: No pitting edema. Ned Sepulveda MD Feb 04, 2020 20:56
--- NOTE | 2020-02-04 21:38 | Neurology Progress Note ---
Interim History Interim History Interim History still very weak Objective Physical Exam Last Vital Signs Date Time Temp Pulse Resp B/P (MAP) Pulse Ox O2 Delivery O2 Flow Rate FiO2 02/04/20 20:14 95 Nasal Cannula 3.0 32 02/04/20 16:00 97.5 87 20 126/80 (95) Laboratory Tests Test 02/04/20 00:10 02/04/20 05:45 02/04/20 12:00 02/04/20 18:00 Troponin I 0.076 ng/mL (0.000-0.056) 0.068 ng/mL (0.000-0.056) 0.072 ng/mL (0.000-0.056) 0.070 ng/mL (0.000-0.056) White Blood Count 10.5 K/UL (4.8-10.8) Red Blood Count 4.12 M/UL (4.70-6.10) L Hemoglobin 13.1 G/DL (14.2-18.0) L Hematocrit 41.1 % (42.0-52.0) L Mean Corpuscular Volume 100 FL (80-99) H Mean Corpuscular Hemoglobin 31.7 PG (27.0-31.0) H Mean Corpuscular Hemoglobin Concent 31.9 G/DL (32.0-36.0) L Red Cell Distribution Width 13.4 % (11.6-14.8) Platelet Count 232 K/UL (150-450) Mean Platelet Volume 6.6 FL (6.5-10.1) Neutrophils (%) (Auto) 71.9 % (45.0-75.0) Lymphocytes (%) (Auto) 16.6 % (20.0-45.0) L Monocytes (%) (Auto) 7.9 % (1.0-10.0) Eosinophils (%) (Auto) 2.8 % (0.0-3.0) Basophils (%) (Auto) 0.7 % (0.0-2.0) Sodium Level 137 MMOL/L (136-145) Potassium Level 3.9 MMOL/L (3.5-5.1) Chloride Level 105 MMOL/L (98-107) Carbon Dioxide Level 28 MMOL/L (21-32) Anion Gap 5 mmol/L (5-15) Blood Urea Nitrogen 12 mg/dL (7-18) Creatinine 0.7 MG/DL (0.55-1.30) Estimat Glomerular Filtration Rate > 60 mL/min (>60) Glucose Level 85 MG/DL (74-106) Calcium Level 7.9 MG/DL (8.5-10.1) L Magnesium Level 1.9 MG/DL (1.8-2.4) Head: normocophalic Neck: no rigidity EENT: benign Neurologic Exam Objective non focal withdraws to pain Impression/Recommendations Problems: (1) Hypokalemia (2) Substance abuse (3) Cocaine abuse (4) Apnea (5) Hypoxia (6) Polysubstance abuse (7) NSTEMI (non-ST elevated myocardial infarction) (8) JOSUE (acute kidney injury) Diagnostic Impression acute encephalopathy, likely metabolic ro vascular, ddx seizure? tele cont atb FU cultures mri brain eeg Jose Luis Paulino MD Feb 04, 2020 21:38
--- NOTE | 2020-02-04 21:39 | Consultation ---
History of Present Illness General Date patient seen: Feb 02, 2020 Chief Complaint: Substance Abuse Reason for Consultation: ams Present Illness HPI 69M with PMH of cocaine use [place]. Patient was given narcan 4mg by EMS with good response. He required another round of Narcan of 2mg. Patient admits to daily use of cocaine for years. Denies any hx of cardiopulomonary disease. No other drug use. Takes no home medications. He is currently resting in bed and feels weak with some chills. Denies any sob, chest pain, abdominal pain, n/v. Initiala troponin .[address] possible slight [address] elevation in anterior leads. Remains somnolent, confused, oriented to person PMH: cocaine abuse Fx: denies any family hisotry disease Soc: uses cocaine daily for years, smokes 5-6 cigg daily for years, denies alcohol use Allergies: Coded Allergies: No Known Allergies (Unverified , 02/02/20) Patient History Healthcare decision maker Resuscitation status Advanced Directive on File Physical Exam Last 24 Hour Vital Signs Date Time Temp Pulse Resp B/P (MAP) Pulse Ox O2 Delivery O2 Flow Rate FiO2 02/04/20 20:14 95 Nasal Cannula 3.0 32 02/04/20 16:00 97.5 87 20 126/80 (95) 100 02/04/20 16:00 90 02/04/20 12:00 97.9 87 20 109/78 (88) 100 02/04/20 12:00 94 02/04/20 09:00 Nasal Cannula 3.0 02/04/20 08:00 97.9 92 20 129/81 (97) 100 02/04/20 08:00 96 02/04/20 04:00 83 02/04/20 04:00 97.6 92 17 136/85 (102) 95 02/04/20 00:00 102 02/04/20 00:00 97.9 90 16 141/91 (108) 95 Intake and Output 02/03/20 02/04/20 19:00 07:00 Intake Total 360 ml Output Total 350 ml Balance 10 ml Intake Oral 360 ml Output Urine Total 350 ml # Voids 2 4 Laboratory Tests Test 02/04/20 00:10 02/04/20 05:45 02/04/20 12:00 02/04/20 18:00 Troponin I 0.076 ng/mL (0.000-0.056) 0.068 ng/mL (0.000-0.056) 0.072 ng/mL (0.000-0.056) 0.070 ng/mL (0.000-0.056) White Blood Count 10.5 K/UL (4.8-10.8) Red Blood Count 4.12 M/UL (4.70-6.10) L Hemoglobin 13.1 G/DL (14.2-18.0) L Hematocrit 41.1 % (42.0-52.0) L Mean Corpuscular Volume 100 FL (80-99) H Mean Corpuscular Hemoglobin 31.7 PG (27.0-31.0) H Mean Corpuscular Hemoglobin Concent 31.9 G/DL (32.0-36.0) L Red Cell Distribution Width 13.4 % (11.6-14.8) Platelet Count 232 K/UL (150-450) Mean Platelet Volume 6.6 FL (6.5-10.1) Neutrophils (%) (Auto) 71.9 % (45.0-75.0) Lymphocytes (%) (Auto) 16.6 % (20.0-45.0) L Monocytes (%) (Auto) 7.9 % (1.0-10.0) Eosinophils (%) (Auto) 2.8 % (0.0-3.0) Basophils (%) (Auto) 0.7 % (0.0-2.0) Sodium Level 137 MMOL/L (136-145) Potassium Level 3.9 MMOL/L (3.5-5.1) Chloride Level 105 MMOL/L (98-107) Carbon Dioxide Level 28 MMOL/L (21-32) Anion Gap 5 mmol/L (5-15) Blood Urea Nitrogen 12 mg/dL (7-18) Creatinine 0.7 MG/DL (0.55-1.30) Estimat Glomerular Filtration Rate > 60 mL/min (>60) Glucose Level 85 MG/DL (74-106) Calcium Level 7.9 MG/DL (8.5-10.1) L Magnesium Level 1.9 MG/DL (1.8-2.4) Height (Feet): 5 Height (Inches): 4.00 Weight (Pounds): 150 Medications Current Medications Medications (Trade) Dose Ordered Sig/Mikel Route PRN Reason Start Time Stop Time Status Last Admin Dose Admin Acetaminophen (Tylenol) 650 mg Q4H PRN ORAL Mild Pain (Pain Scale 1-3) 02/02/20 11:45 03/03/20 11:44 02/02/20 13:01 Acetaminophen (Tylenol) 650 mg Q4H PRN ORAL Temp >100.5 02/02/20 11:45 03/03/20 11:44 Albuterol/ Ipratropium (Albuterol/ Ipratropium) 3 ml Q4HR PRN HHN Shortness of Breath 02/02/20 11:45 02/07/20 11:44 Aspirin (ASA) 81 mg DAILY NG 02/02/20 09:00 03/18/20 08:59 02/04/20 08:17 Azithromycin 500 mg/Dextrose 275 ml @ 275 mls/hr Q24HRS IV 02/04/20 17:00 02/10/20 17:59 02/04/20 17:08 Ceftriaxone Sodium 1 gm/ Dextrose 55 ml @ 110 mls/hr Q24H IVPB 02/03/20 08:00 02/10/20 07:59 02/04/20 08:17 Dextrose (Dextrose 50%) 25 ml Q30M PRN IV Hypoglycemia 02/02/20 11:45 05/02/20 11:44 Dextrose (Dextrose 50%) 50 ml Q30M PRN IV Hypoglycemia 02/02/20 11:45 05/02/20 11:44 Heparin Sodium (Porcine) (Heparin 5000 units/ml) 5,000 units EVERY 12 HOURS SUBQ 02/02/20 09:00 03/18/20 08:59 02/04/20 08:18 Lorazepam (Ativan 2mg/ml 1ml) 1 mg Q4H PRN IV For Anxiety 02/02/20 10:45 02/09/20 10:44 Magnesium Hydroxide (Mom) 30 ml HSPRN PRN ORAL Constipation 02/02/20 11:45 03/03/20 11:44 02/04/20 12:23 Sodium Chloride 1,000 ml @ 75 mls/hr [id number] IV 02/02/20 07:30 03/03/20 07:29 02/04/20 12:23 Tramadol HCl (Ultram) 50 mg Q6H PRN ORAL For Pain 02/03/20 01:00 02/10/20 00:59 02/03/20 01:39 Assessment/Plan Problem List: (1) Hypokalemia ICD Codes: E87.6 - Hypokalemia SNOMED: 95813241 (2) Substance abuse ICD Codes: F19.10 - Other psychoactive substance abuse, uncomplicated SNOMED: 19792212 (3) Cocaine abuse ICD Codes: F14.10 - Cocaine abuse, uncomplicated SNOMED: 58111091 (4) Apnea ICD Codes: R06.81 - Apnea, not elsewhere classified SNOMED: 4782454, 373490229 (5) Hypoxia ICD Codes: R09.02 - Hypoxemia SNOMED: 399127605 (6) Polysubstance abuse ICD Codes: F19.10 - Other psychoactive substance abuse, uncomplicated SNOMED: 928536819, 715878280 (7) NSTEMI (non-ST elevated myocardial infarction) ICD Codes: I21.4 - Non-ST elevation (NSTEMI) myocardial infarction SNOMED: 04212479, 868730399 (8) JOSUE (acute kidney injury) ICD Codes: N17.9 - Acute kidney failure, unspecified SNOMED: 77704369, 0543857 Status: unchanged Assessment/Plan: toxic metabolic encephalopathy eeg ordered fu cultures Jose Luis Gutierres MD Feb 04, 2020 21:39
[2020-02-05] VITALS: BP 128/84
[2020-02-05 04:00] VITALS: BP 124/73
[2020-02-05 07:39] LABS: BASOPHILS % (AUTO) 0.9 % (0.0-2.0); HEMATOCRIT 42.7 % (42.0-52.0); HEMOGLOBIN 13.6 G/DL (14.2-18.0); LYMPHOCYTES % (AUTO) 26.9 % (20.0-45.0); MEAN CORPUSCULAR VOLUME 100 FL (80-99); MONOCYTES % (AUTO) 8.8 % (1.0-10.0); NEUTROPHILS % (AUTO) 59.3 % (45.0-75.0); PLATELET COUNT 252 K/UL (150-450); RED BLOOD COUNT 4.28 M/UL (4.70-6.10); RED CELL DISTRIBUTION WIDTH 13.2 % (11.6-14.8)
[2020-02-05 08:00] VITALS: BP 135/62
[2020-02-05 08:04] LABS: ANION GAP 4 mmol/L (5-15); BLOOD UREA NITROGEN 12 mg/dL (7-18); CALCIUM 8.4 MG/DL (8.5-10.1); CARBON DIOXIDE 28 MMOL/L (21-32); CHLORIDE 106 MMOL/L (98-107); CREATININE 0.8 MG/DL (0.55-1.30); POTASSIUM 3.9 MMOL/L (3.5-5.1); SODIUM 138 MMOL/L (136-145)
[2020-02-05] MEDS: Aspirin Baby 81mg NG SCH (08:05)
[2020-02-05] MEDS: cefTRIAXone 1 GM in D5W 55 ML IVPB SCH (08:05)
[2020-02-05] MEDS: Heparin 5000 units/ml inj SUBQ SCH ×3 (08:07→21:22)
--- NOTE | 2020-02-05 09:07 | General Progress Note ---
Subjective Constitutional: Denies: no symptoms, chills, diaphoresis, fever, malaise, weakness, other HEENT: Denies: no symptoms, eye pain, blurred vision, tearing, double vision, ear pain, ear discharge, nose pain, nose congestion, throat pain, throat swelling, mouth pain, mouth swelling, other Cardiovascular: Denies: no symptoms, chest pain, edema, irregular heart rate, lightheadedness, palpitations, syncope, other Respiratory: Reports: cough, sputum; Denies: no symptoms, orthopnea, shortness of breath, SOB with excertion, SOB at rest, stridor, wheezing, other Gastrointestinal/Abdominal: Denies: no symptoms, abdomen distended, abdominal pain, black stools, tarry stools, blood in stool, constipated, diarrhea, difficulty swallowing, nausea, poor appetite, poor fluid intake, rectal bleeding, vomiting, other Genitourinary: Denies: no symptoms, burning, discharge, frequency, flank pain, hematuria, incontinence, pain, urgency, other Neurologic/Psychiatric: Denies: no symptoms, anxiety, depressed, emotional problems, headache, numbness, paresthesia, pre-existing deficit, seizure, tingling, tremors, weakness, other Endocrine: Denies: no symptoms, excessive sweating, flushing, intolerance to cold, intolerance to heat, increased hunger, increased thirst, increased urine, unexplained weight gain, unexplained weight loss, other Hematologic/Lymphatic: Denies: no symptoms, anemia, easy bleeding, easy b ruising, other Allergies: Coded Allergies: No Known Allergies (Unverified , 02/02/20) Subjective No acute events overnight. Patient feels well morning. Has better energy today. Still has a cough with sputum however improved. No fevers, chills. Pending MRI of brain per neurology tomorrow. Objective Last 24 Hour Vital Signs Date Time Temp Pulse Resp B/P (MAP) Pulse Ox O2 Delivery O2 Flow Rate FiO2 02/05/20 08:00 99.1 59 20 135/62 (86) 95 02/05/20 04:00 79 02/05/20 04:00 99.3 78 16 124/73 (90) 93 02/05/20 00:00 93 02/05/20 00:00 98.4 74 20 128/84 (99) 93 11/21/20 21:00 Nasal Cannula 3.0 02/04/20 20:14 95 Nasal Cannula 3.0 32 02/04/20 20:00 99.3 92 20 126/84 (98) 95 02/04/20 16:00 97.5 87 20 126/80 (95) 100 02/04/20 16:00 90 02/04/20 12:00 97.9 87 20 109/78 (88) 100 02/04/20 12:00 94 Intake and Output 02/04/20 02/05/20 19:00 07:00 Intake Total 354 ml Output Total 1100 ml Balance -746 ml Intake Oral 354 ml Output Urine Total 1100 ml # Voids 3 Laboratory Tests 02/04/20 12:00: Troponin I 0.072H 02/04/20 18:00: Troponin I 0.070H 02/05/20 06:15: White Blood Count 7.0, Red Blood Count 4.28L, Hemoglobin 13.6L, Hematocrit 42.7, Mean Corpuscular Volume 100H, Mean Corpuscular Hemoglobin 31.8H, Mean Corpuscular Hemoglobin Concent 31.9L, Red Cell Distribution Width 13.2, Platelet Count 252, Mean Platelet Volume 6.6, Neutrophils (%) (Auto) 59.3, Lymphocytes (%) (Auto) 26.9, Monocytes (%) (Auto) 8.8, Eosinophils (%) (Auto) 4.0H, Basophils (%) (Auto) 0.9, Sodium Level 138, Potassium Level 3.9, Chloride Level 106, Carbon Dioxide Level 28, Anion Gap 4L, Blood Urea Nitrogen 12, Creatinine 0.8, Estimat Glomerular Filtration Rate > 60, Glucose Level 79, Calcium Level 8.4L, Magnesium Level 2.1 Height (Feet): 5 Height (Inches): 4.00 Weight (Pounds): 150 General Appearance: no apparent distress, alert, alert oriented x3 EENT: PERRL/EOMI Neck: non-tender, normal alignment Cardiovascular: normal rate, regular rhythm, no JVD Respiratory/Chest: lungs clear, normal breath sounds Abdomen: non tender, soft, no mass Extremities: normal range of motion, non-tender Edema: no edema noted Arm (L), no edema noted Arm (R), no edema noted Leg (L), no edema noted Leg (R), no edema noted Pedal (L), no edema noted Pedal (R), no edema noted Generalized 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 Mcmahon is a 69M with PMH of cocaine abuse admitted after being found down. A: # Acute Toxic Encephalopathy 2/2 cocaine abuseresolved # NSTEMI type 2 2/2 from cocaine abuse #Community-acquired pneumonia #Sepsis (Leukocytosis + fever) plus UTI source and pneumonia #UTI # Cocaine Abuse # JOSUE likely 2/2 Drug abuse, pre-renalresolved # Macrocytic Anemia #Newly diagnosed type 2 diabetes mellitus P: - hemodynamically stable - sat well on 3 L, monitor for increased O2 support, wean off nasal cannula as tolerated -Echo showing preserved EF of 55% no regional wall motion abnormalities no valvular function abnormalities RSVP of 10 - no BB at this time given cocaine abuse Continue Rocephin and azithromycin for pneumonia for 5 days total Monitor leukocytosis which now resolved Blood cultures negative for 48 hours, MRSA screen negative Follow-up MRI and EEG per neurology - A1c: 6.5, will give Metformin on discharge - ativan prn for agitation - Cardiology consult Dr. Sepulveda, recs appreciated Neurology consulted Dr. Paulino, recs appreciated Physical therapy CODE: Full GI: none DVT: heparin 5000U BID Diet: cardiac Dispo: Improvement of pneumonia, MRI results, possible discharge tomorrow Time spent on this encounter was 37 minutes which included 22 minutes of counse ling and care coordination. I discussed with the nurse at bedside. Time of note may not reflect time patient was seen. Sumit Cai D.O Feb 05, 2020 09:07
[2020-02-05 11:40] VITALS: BP 131/81
[2020-02-05 15:00] VITALS: BP 126/81
[2020-02-05] MEDS: Azithromycin 500 MG in D5W 275 ML IV SCH (17:08)
--- NOTE | 2020-02-05 18:44 | Electroencephalogram ---
REQUESTING PHYSICIAN: Jose Luis Paulino MD READING PHYSICIAN: Suraj Dominguez MD PROCEDURE PERFORMED: Electroencephalogram. DATE OF TRACIN02/04/2020 HISTORY: This EEG was performed on a 69-year-old gentleman with a history of polysubstance abuse, who was noted to have an altered mental state. The purpose of this EEG was to evaluate the patient for the degree and type of cerebral dysfunction. TECHNICAL NOTE: This EEG was performed on a [employer] with electrodes placed on the scalp according to the International 10-20 system. [id number] and [id number] montages were used. The EEG was technically satisfactory and was performed in the awake and drowsy states. OBSERVATIONS: In the best awake state, the background activity consisted of 10-11 Hz, posteriorly predominant, well-developed alpha waveforms, which attenuated on eye opening. Drowsiness was characterized by dissolution of the alpha rhythm and the appearance of slower frequencies in the 6-7 Hz theta range. No focal abnormalities or epileptiform discharges were seen. IMPRESSION: Normal awake and drowsy EEG. Suraj Dominguez M.D., M.S.P.H. Clinical Neurophysiologist DR: Nalini JOB#: [id number] MTDIleana
[2020-02-05 20:00] VITALS: BP 105/66
--- NOTE | 2020-02-05 20:20 | Neurology Progress Note ---
Interim History Interim History Interim History mri brain still pending Objective Physical Exam Last Vital Signs Date Time Temp Pulse Resp B/P (MAP) Pulse Ox O2 Delivery O2 Flow Rate FiO2 02/05/20 19:47 96 Room Air 21 02/05/20 15:00 98.6 91 20 126/81 (96) Laboratory Tests Test 02/05/20 06:15 White Blood Count 7.0 K/UL (4.8-10.8) Red Blood Count 4.28 M/UL (4.70-6.10) L Hemoglobin 13.6 G/DL (14.2-18.0) L Hematocrit 42.7 % (42.0-52.0) Mean Corpuscular Volume 100 FL (80-99) H Mean Corpuscular Hemoglobin 31.8 PG (27.0-31.0) H Mean Corpuscular Hemoglobin Concent 31.9 G/DL (32.0-36.0) L Red Cell Distribution Width 13.2 % (11.6-14.8) Platelet Count 252 K/UL (150-450) Mean Platelet Volume 6.6 FL (6.5-10.1) Neutrophils (%) (Auto) 59.3 % (45.0-75.0) Lymphocytes (%) (Auto) 26.9 % (20.0-45.0) Monocytes (%) (Auto) 8.8 % (1.0-10.0) Eosinophils (%) (Auto) 4.0 % (0.0-3.0) H Basophils (%) (Auto) 0.9 % (0.0-2.0) Sodium Level 138 MMOL/L (136-145) Potassium Level 3.9 MMOL/L (3.5-5.1) Chloride Level 106 MMOL/L (98-107) Carbon Dioxide Level 28 MMOL/L (21-32) Anion Gap 4 mmol/L (5-15) L Blood Urea Nitrogen 12 mg/dL (7-18) Creatinine 0.8 MG/DL (0.55-1.30) Estimat Glomerular Filtration Rate > 60 mL/min (>60) Glucose Level 79 MG/DL (74-106) Calcium Level 8.4 MG/DL (8.5-10.1) L Magnesium Level 2.1 MG/DL (1.8-2.4) Head: normocophalic Neck: no rigidity EENT: benign Neurologic Exam Objective non focal withdraws to pain Impression/Recommendations Problems: (1) Hypokalemia (2) Substance abuse (3) Cocaine abuse (4) Apnea (5) Hypoxia (6) Polysubstance abuse (7) NSTEMI (non-ST elevated myocardial infarction) (8) JOSUE (acute kidney injury) Status: unchanged Diagnostic Impression acute encephalopathy, likely metabolic ro vascular, improving tele cont atb mri brain pending Jose Luis Paulino MD Feb 05, 2020 20:20
--- NOTE | 2020-02-05 20:37 | Cardiology Report ---
APPROVED REPORT EKG Measurement Heart [id number] <Conclusion> Normal sinus rhythm Anterior infarct, age undetermined Abnormal ECG
[2020-02-06] VITALS: BP 140/88
[2020-02-06 04:00] VITALS: BP 127/82
[2020-02-06 08:00] VITALS: BP 136/81
[2020-02-06] MEDS: Aspirin Baby 81mg NG SCH (08:09)
[2020-02-06] MEDS: cefTRIAXone 1 GM in D5W 55 ML IVPB SCH (08:09)
[2020-02-06] MEDS: Heparin 5000 units/ml inj SUBQ SCH (08:10)
--- NOTE | 2020-02-06 09:29 | General Progress Note ---
Subjective Constitutional: Denies: no symptoms, chills, diaphoresis, fever, malaise, weakness, other HEENT: Denies: no symptoms, eye pain, blurred vision, tearing, double vision, ear pain, ear discharge, nose pain, nose congestion, throat pain, throat swelling, mouth pain, mouth swelling, other Cardiovascular: Denies: no symptoms, chest pain, edema, irregular heart rate, lightheadedness, palpitations, syncope, other Respiratory: Reports: cough, sputum; Denies: no symptoms, orthopnea, shortness of breath, SOB with excertion, SOB at rest, stridor, wheezing, other Gastrointestinal/Abdominal: Denies: no symptoms, abdomen distended, abdominal pain, black stools, tarry stools, blood in stool, constipated, diarrhea, difficulty swallowing, nausea, poor appetite, poor fluid intake, rectal bleeding, vomiting, other Genitourinary: Denies: no symptoms, burning, discharge, frequency, flank pain, hematuria, incontinence, pain, urgency, other Neurologic/Psychiatric: Denies: no symptoms, anxiety, depressed, emotional problems, headache, numbness, paresthesia, pre-existing deficit, seizure, tingling, tremors, weakness, other Endocrine: Denies: no symptoms, excessive sweating, flushing, intolerance to cold, intolerance to heat, increased hunger, increased thirst, increased urine, unexplained weight gain, unexplained weight loss, other Hematologic/Lymphatic: Denies: no symptoms, anemia, easy bleeding, easy b ruising, other Allergies: Coded Allergies: No Known Allergies (Unverified , 02/02/20) Subjective No acute events overnight. Patient feels well this morning. Still has a cough bothers him. No shortness of breath, chest pain, fevers. Pending MRI today. Objective Last 24 Hour Vital Signs Date Time Temp Pulse Resp B/P (MAP) Pulse Ox O2 Delivery O2 Flow Rate FiO2 02/06/20 04:00 98.1 74 20 127/82 (97) 96 02/06/20 00:00 98.2 62 16 140/88 (105) 96 02/05/20 21:00 Room Air 02/05/20 20:00 98.2 89 20 105/66 (79) 95 02/05/20 19:47 96 Room Air 21 02/05/20 15:00 98.6 91 20 126/81 (96) 94 02/05/20 12:00 91 02/05/20 11:40 97.7 87 20 131/81 (98) 95 Intake and Output 02/05/20 02/06/20 19:00 07:00 Intake Total 910 ml 480 ml Output Total 1300 ml 1500 ml Balance -390 ml -1020 ml Intake Oral 480 ml 480 ml IV Total 430 ml Output Urine Total 1300 ml 1500 ml # Voids 6 4 Height (Feet): 5 Height (Inches): 4.00 Weight (Pounds): 150 General Appearance: no apparent distress, alert, alert oriented x3 EENT: PERRL/EOMI, normal ENT inspection Neck: normal alignment, supple, normal inspection Cardiovascular: normal rate, regular rhythm, no JVD Respiratory/Chest: no respiratory distress, crackles/rales Abdomen: non tender, soft Extremities: normal range of motion, non-tender Edema: no edema noted Arm (L), no edema noted Arm (R), no edema noted Leg (L), no edema noted Leg (R), no edema noted Pedal (L), no edema noted Pedal (R), no edema noted 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 Mcmahon is a 69M with H of cocaine abuse admitted after being found down. A: # Acute Toxic Encephalopathy 2/2 cocaine abuseresolved # NSTEMI type 2 2/2 from cocaine abuse #Community-acquired pneumonia #Sepsis (Leukocytosis + fever) plus UTI source and pneumonia #UTI # Cocaine Abuse # JOSUE likely 2/2 Drug abuse, pre-renalresolved # Macrocytic Anemia #Newly diagnosed type 2 diabetes mellitus P: - hemodynamically stable - sat well on room air, monitor for increased O2 support - no BB at this time given cocaine abuse We will switch to Augmentin and doxycycline, from Rocephin/Zithromax for pending discharge Blood cultures negative for 72 hours, MRSA screen negative Follow-up MRI today EEG noted to have normal wake and drowsy brain activity - A1c: 6.5, will give Metformin on discharge - ativan prn for agitation - Cardiology consult Dr. Sepulveda, recs appreciated Neurology consulted Dr. Paulino, recs appreciated Physical therapy social service consult for substance abuse CODE: Full GI: none DVT: heparin 5000U BID Diet: cardiac Dispo: Charge possibly today if not tomorrow pending MRI results Time spent on this encounter was 35 minutes which included 21 minutes of counseling and care coordination. I discussed with the nurse at bedside. Time of note may not reflect time patient was seen. Sumit Cai D.O Feb 06, 2020 09:29
--- NOTE | 2020-02-06 10:20 | Cardiac Electrophysiology PN ---
Assessment/Plan Assessment/Plan 1. Troponin elevation. The levels are flat and low level due cocaine use as well as renal failure Avoid beta-blockers. Continue aspirin and statin. Echocardiogram EF 55% 2. Altered mental status due to cocaine use. 3. Toxic encephalopathy due to cocaine use. 4. Renal failure with creatinine 1.4. 5. Microcytic anemia. DC planning today to nursing home Subjective Subjective Alert in SR. On Abx. DC in progress Objective Last 24 Hour Vital Signs Date Time Temp Pulse Resp B/P (MAP) Pulse Ox O2 Delivery O2 Flow Rate FiO2 02/06/20 04:00 98.1 74 20 127/82 (97) 96 02/06/20 00:00 98.2 62 16 140/88 (105) 96 02/05/20 21:00 Room Air 02/05/20 20:00 98.2 89 20 105/66 (79) 95 02/05/20 19:47 96 Room Air 21 02/05/20 15:00 98.6 91 20 126/81 (96) 94 02/05/20 12:00 91 02/05/20 11:40 97.7 87 20 131/81 (98) 95 Intake and Output 02/05/20 02/06/20 18:59 06:59 Intake Total 910 ml 480 ml Output Total 1300 ml 1500 ml Balance -390 ml -1020 ml Intake Oral 480 ml 480 ml IV Total 430 ml Output Urine Total 1300 ml 1500 ml # Voids 6 4 Microbiology Date/Time Source Procedure Growth Status 02/03/20 12:15 Blood Blood Culture - Preliminary NO GROWTH AFTER 48 HOURS Resulted 02/03/20 12:00 Blood Blood Culture - Preliminary NO GROWTH AFTER 48 HOURS Resulted Objective HEAD AND NECK: No JVD. LUNGS: Clear. CARDIOVASCULAR: Regular S1 and S2 with no gallop. ABDOMEN: Soft. EXTREMITIES: No pitting edema. Ned Sepulveda MD Feb 06, 2020 10:20
--- NOTE | 2020-02-06 10:49 | Cardiology Report ---
APPROVED REPORT EXAM: Two-dimensional and M-mode echocardiogram with Doppler and color Doppler. INDICATION Altered mental status M-Mode DIMENSIONS IVSd1.0 (0.7-1.1cm)Left Atrium (MM)3.7 (1.6-4.0cm) LVDd4.9 (3.5-5.6cm)Aortic Root3.8 (2.0-3.7cm) PWd1.1 (0.7-1.1cm)Aortic Cusp Exc.1.9 (1.5-2.0cm) IVSs1.3 cmEPSS0.4 (>1.0cm) LVDs3.2 (2.5-4.0cm) PWs2.1 cm <Conclusion> Technically difficult study due to poor acoustical windows. Normal left ventricular chamber size, systolic function and wall motion. Left ventricular ejection fraction estimated to be 55%. No left ventricular hypertrophy. No evidence of pericardial effusion. All other cardiac chamber sizes are within normal limits. Focal aortic valve sclerosis with adequate cusp excursion. Thickened mitral valve leaflets with normal excursion. Mitral annulus and aortic root calcification. Pulmonic valve not well visualized. Normal tricuspid valve structure. IVC at normal size and collapsing with respiration. A color flow and spectral Doppler study was performed and revealed: Trace aortic insufficiency. Mild mitral regurgitation. Mitral diastolic velocities suggest reduced left ventricular relaxation c/w mild LV diastolic dysfunction (Grade I ). Trace tricuspid regurgitation. Tricuspid systolic velocities suggests peak right ventricular systolic pressure of 10 mmHg. No pulmonic regurgitation present.
[2020-02-06 12:00] VITALS: BP 131/84
--- NOTE | 2020-02-06 12:58 | Diagnostic Imaging Report ---
Indication: Altered mental status Technique: sagittal T1 fast spin echo, axial T1 FLAIR, axial T2 FLAIR, axial T2 FS PROPELLER, axial T2* GRE, axial diffusion weighted images. ADC and exponential ADC maps generated Comparison: Reference made to head CT 02/02/2020 Findings: No abnormal areas of restricted diffusion to suggest acute infarction. No acute hemorrhage or edema. No mass effect nor midline shift. There is age-related enlargement of the ventricles and extra axial CSF spaces. There is considerable periventricular deep white matter high T2 signal, consistent with chronic microvascular ischemic change. Visualized orbits and sinuses are unremarkable. The vascular flow voids are preserved. The mastoids are clear. Impression: Chronic and age-related changes Negative for acute intracranial bleed or mass effect.
[2020-02-06] MEDS ORDERED: ASPIRIN81 MG ORAL (13:16)
[2020-02-06] MEDS ORDERED: AMOX TR-K CLV1 EAC2 ORAL (13:16)
[2020-02-06] MEDS ORDERED: DOXYCYCLINE MO100 MG ORAL (13:16)
[2020-02-06] MEDS ORDERED: METFORMIN HCL500 M1 ORAL (13:17)
[2020-02-06] MEDS ORDERED: TESSALON PERLE100 MG ORAL (13:17)
--- NOTE | 2020-02-06 13:18 | Discharge Instructions ---
Discharge Instructions Discharge Instructions Diet: cardiac 2 GM Na, low fat Resume Normal Activity?: Yes Activity: light activity Follow Up Orders Follow-up with primary care in 1 to 2 weeks For Congestive Heart Failure Reminder Report to your physician any weight gain of 5 pounds or more in one week. Sumit Cai D.O Feb 06, 2020 13:18
--- NOTE | 2020-02-06 13:29 | Discharge Summary ---
Discharge Summary Hospital Course Date of Admission Feb 02, 2020 at 03:17 Date of Discharge Admitting Diagnosis NSTEMI HPI Ezekiel Mcmahon is a 69 year old male who was admitted on Feb 02, 2020 at 03:17 for Nstemi Hospital Course Mr. Mcmahon is a 69M with PMH of cocaine abuse admitted after being found down. He was given multiple rounds of Narcan by EMS which he responded well to. U tox positive for cocaine. On initial evaluation he was found to have an elevated troponin, EKG with normal sinus rhythm. He was evaluated by cardiology and likely NSTEMI with type II from demand ischemia secondary to cocaine abuse. Echo showing preserved EF of 55%, no left ventricular hypertrophy, no regional wall motion abnormalities, RSVP at 10. Patient was also evaluated by neurology for encephalopathy in which EEG and MRI of the brain was completed, EEG showing normal daytime and drowsy brain activity. MRI brain showing no acute pathology, positive for chronic age-related changes. Chest x-ray showed possible right lobe infiltrates in which patient was started on Rocephin and azithromycin. He was also found to have a mild JOSUE likely secondary to prerenal azotemia that responded to fluids. Patient otherwise remained hemodynamically stable without any acute respiratory compromise. He is able to ambulate, tolerate diet, use restroom on his own. No concerns for ability to do all ADLs. Patient has been otherwise stable and medically cleared for safe discharge home today. A: # Acute Toxic Encephalopathy 2/2 cocaine abuseresolved # NSTEMI type 2 2/2 from cocaine abuse #Community-acquired pneumonia #Sepsis (Leukocytosis + fever) plus UTI source and pneumonia #UTI # Cocaine Abuse # JOSUE likely 2/2 Drug abuse, pre-renalresolved # Macrocytic Anemia #Newly diagnosed type 2 diabetes mellitus P: -Patient to complete 5 more days of Augmentin 875 mg twice daily and doxycycline 100 mg twice daily for pneumonia He had a mild JOSUE secondary to prerenal azotemia that responded to fluids patient will be given Tessalon Perles for cough as needed Patient to start Metformin 500 mg twice daily for new type 2 diabetes mellitus, A1c 6.5 Discussion with patient with lifestyle changes regarding cocaine cessation, increase exercise and monitor diet with new onset diabetes Patient to follow-up with primary care physician in 1 to 2 weeks Time spent on this encounter was 39 minutes which included 21 minutes of counseling and care coordination. I discussed with the nurse at bedside. Time of note may not reflect time patient was seen. Discharge Discharge Vital Signs Last Vital Signs Date Time Temp Pulse Resp B/P (MAP) Pulse Ox O2 Delivery O2 Flow Rate FiO2 02/06/20 12:00 98.4 75 18 131/84 (100) 97 02/06/20 09:00 Room Air 2.0 02/05/20 19:47 21 Discharge Disposition Patient was discharged to Discharge Instructions Discharge Instructions Activity: light activity Sumit Cai D.O Feb 06, 2020 13:29
[2020-02-06] MEDS ORDERED: Flu Vaccine Quadrivalent IM ONE (15:30)
[2020-02-06 16:00] VITALS: BP 138/86
[2020-02-06] MEDS ORDERED: Flu Vac High-Dose for Pts 65 Years and Older IM ONE (16:00)
--- NOTE | 2020-02-06 19:05 | Neurology Progress Note ---
Interim History Interim History Interim History eeg was normal dc planning Objective Physical Exam Last Vital Signs Date Time Temp Pulse Resp B/P (MAP) Pulse Ox O2 Delivery O2 Flow Rate FiO2 02/06/20 16:00 98.3 78 18 138/86 (103) 97 02/06/20 09:00 Room Air 2.0 02/05/20 19:47 21 Head: normocophalic Neck: no rigidity EENT: benign Neurologic Exam Objective non focal withdraws to pain Impression/Recommendations Problems: (1) Hypokalemia (2) Substance abuse (3) Cocaine abuse (4) Apnea (5) Hypoxia (6) Polysubstance abuse (7) NSTEMI (non-ST elevated myocardial infarction) (8) JOSUE (acute kidney injury) Status: unchanged Diagnostic Impression acute encephalopathy, likely metabolic ro vascular, improving tele cont atb mri brain pending Jose Luis Paulino MD Feb 06, 2020 19:05
[2020-02-06] MEDS ORDERED: Doxycycline Monohydrate 100mg ORAL SCH (21:00)
[2020-02-06] MEDS ORDERED: Augmentin 875mg Tab ORAL SCH (21:00)
[2020-02-07] MEDS ORDERED: Benzonatate 100mg Perles ORAL SCH
[2020-02-07] MEDS ORDERED: Doxycycline Monohydrate 100mg ORAL SCH
[2020-02-07] MEDS ORDERED: metFORMIN 500mg tab ORAL SCH
[2020-02-07] MEDS ORDERED: Augmentin 875mg Tab ORAL SCH
[2020-02-07] MEDS ORDERED: Aspirin Baby 81mg ORAL SCH ×2 (09:00)
== END 2020-02-06 19:00 | disposition home or self-care (01) | DRG 871 ==
LOC: EDBD 00:04 → EMR 00:24 → 2E 03:17 → EDBEDREQ 03:48 → 3E 02-05 15:28
DX: A41.9 Sepsis, unspecified organism (principal); I21.A1 Myocardial infarction type 2; G92 Toxic encephalopathy; J18.9 Pneumonia, unspecified organism; N17.9 Acute kidney failure, unspecified; N39.0 Urinary tract infection, site not specified; F14.188 Cocaine abuse with other cocaine-induced disorder; F17.200 Nicotine dependence, unspecified, uncomplicated; D64.9 Anemia, unspecified; E11.9 Type 2 diabetes mellitus without complications; Z59.0 Homelessness; E87.6 Hypokalemia; F19.10 Other psychoactive substance abuse, uncomplicated
CPT/HCPCS: 36415; 70450; 70551; 71045; 80048; 80053; 80061; 80307; 81001; 81003; 82140; 82570; 82607; 82746; 82962; 83036; 83735; 83880; 84300; 84439; 84443; 84481; 84484; 85025; 87040; 87081; 87086; 93005; 93306; 94664; 95819; 96361; 96365; 96366; 96375; 99291; G0480; J2310; J7030; J8499; U0002